=== PATIENT | female | born 2005 | race Caucasian/White ===

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

== ENCOUNTER 2023-01-08 19:01 | Emergency (ER) | payer MEDICAID, SELFPAY ==
[2023-01-08 19:05] VITALS: BP 118/73; PULSE 87; RESP 18; TEMP 36.7; O2SAT 95; BMI 16.6
--- NOTE | 2023-01-08 19:13 | W.ED.PREGNAN ---
HPI - General: Chief complaint: OB/Uterine Contractions Stated complaint: abd pain/bleeding Time Seen by Provider: 01/08/23 19:11 History of Present Illness: 17-year-old female has had spotting for which she reports the last 2 weeks. Patient had a positive test today. Patient appears nontoxic. Patient appears in no acute distress. Patient reports mild cramping. Patient reports irregular bleeding but not saturation of pad and no loss of tissue. Related Data: : 3 Para: 2 Total number of abortions (spontaneous and elective): 0 Review of Systems General: Reports: 10 or more systems reviewed and unremarkable except in HPI and below : Reports: vaginal bleeding and other (Positive test) PFS ED PFSH: Medical History No pertinent family history Surgical History No pertinent past surgical history Social History Smoking and tobacco status: current every day smoker e-cigarettes E-Cigarette Details: vaporizer device Second hand smoke exposure: Yes Alcohol intake: never Desire information about alcohol rehabilitation?: No Substance/Drug Use: never Desire information about substance/drug rehabilitation?: No Female Reproductive History: : 3 Physical Exam Const: COMMON NORMALS: alert HENMT: COMMON NORMALS: normocephalic HEAD & SCALP: normocephalic Neck/C-Spine: COMMON NORMALS: full ROM Resp: COMMON NORMALS: normal respiratory effort and clear to auscultation bilaterally AUSCULTATION: clear to auscultation bilaterally Cardio: COMMON NORMALS: regular rate and regular rhythm RATE: regular rate RHYTHM: regular rhythm : COMMON NORMALS: Yes no CVA tenderness BLADDER/KIDNEY EXAM: Yes no CVA tenderness Back/Pelvis: COMMON NORMALS: no CVA tenderness Extremity: COMMON NORMALS: normal to inspection Neuro: SENSORIUM/ORIENTATION: Yes alert Skin: COMMON NORMALS: turgor normal GENERAL SKIN EXAM: turgor normal Course Vital Signs: Vital signs: Vital Signs Temperature 98.0 F 01/08/23 19:05 Pulse Rate 87 01/08/23 19:05 Respiratory Rate 18 01/08/23 19:05 Blood Pressure 118/73 01/08/23 19:05 Pulse Oximetry 95 01/08/23 19:05 Oxygen Delivery Me thod Room Air 01/08/23 19:05 MDM - OB/Uterine Contractions Medical Decision Making 17-year-old female comes in today with complaints of irregular bleeding for the last 2 weeks. Patient had a positive test today and came in to be evaluated. Patient appears nontoxic. Patient appears in no acute distress. Patient reports no no heavy bleeding. Vital signs are normal. Differential diagnosis includes not limited to threatened , implantation bleeding, ectopic , UTI. CBC was unremarkable. CMP was normal. Urinalysis had some red blood cells and skin cells. hCG was 600. Did not recommend ultrasound at this time, recommend repeat hCG level drawn in 3 days and ultrasound at that time if greater than 1500. Patient reports understanding of care plan and need for follow-up or return to the ER. Lab Data 01/08/23 20:17 01/08/23 20:17 Laboratory Results WBC 7.3 10^3/uL (4.5-13.0) 01/08/23 20:17 RBC 4.05 10^6/uL (4.1-5.3) L 01/08/23 20:17 Hgb 11.5 g/dL (11.5-15.3) 01/08/23 20:17 Hct 34.6 % (37.0-47.0) L 01/08/23 20:17 MCV 85.4 fl (81-99) 01/08/23 20:17 MCH 28.4 pg (28.0-34.0) 01/08/23 20:17 MCHC 33.2 g/dL (30.0-36.0) 01/08/23 20:17 RDW 13.7 % (12.1-15.1) 01/08/23 20:17 Plt Count 284 10^3/cmm (130-400) 01/08/23 20:17 MPV 9.4 fL (7.4-10.4) 01/08/23 20:17 Neut % (Auto) 46.1 % 01/08/23 20:17 Lymph % (Auto) 44.6 % 01/08/23 20:17 Nelson % (Auto) 7.7 % 01/08/23 20:17 Eos % (Auto) 1.2 % 01/08/23 20:17 Baso % (Auto) 0.3 % 01/08/23 20:17 Neut # (Auto) 3.36 10^3/uL (1.8-8.0) 01/08/23 20:17 Lymph # (Auto) 3.3 10^3/uL (1.5-6.5) 01/08/23 20:17 Nelson # (Auto) 0.6 10^3/uL (0.2-0.9) 01/08/23 20:17 Eos # (Auto) 0.1 10^3/uL (0.0-0.8) 01/08/23 20:17 Baso # (Auto) 0.0 10^3/uL (0.0-0.1) 01/08/23 20:17 Nucleated RBC % (auto) 0 % 01/08/23 20:17 Nucleated RBCs # 0.0 /100WBC 01/08/23 20:17 Sodium 138 mmol/L (136-145) 01/08/23 20:17 Potassium 3.5 mmol/L (3.5-5.1) 01/08/23 20:17 Chloride 103 mmol/L (98-107) 01/08/23 20:17 Carbon Dioxide 26 mmol/L (22-29) 01/08/23 20:17 Anion Gap 12.5 (5-19) 01/08/23 20:17 BUN 9 mg/dL (6-20) 01/08/23 20:17 Creatinine 0.5 mg/dL (0.5-0.9) 01/08/23 20:17 GFR Calculation 158.9 mL/min (90-130) H 01/08/23 20:17 Glucose 74 mg/dL (65-115) 01/08/23 20:17 Calculated Osmolality 283 mOsm/kg (285-295) L 01/08/23 20:17 Calcium 9.9 mg/dL (8.5-10.5) 01/08/23 20:17 Total Bilirubin 0.4 mg/dL (0.15-1.2) 01/08/23 20:17 AST 16 U/L (0-32) 01/08/23 20:17 ALT 10 U/L (0-33) 01/08/23 20:17 Alkaline Phosphatase 63 U/L (35-105) 01/08/23 20:17 Total Protein 7.1 g/dL (6.6-8.7) 01/08/23 20:17 Albumin 4.5 g/dL (3.5-5.2) 01/08/23 20:17 Globulin 2.6 g/dL (1.3-4.6) 01/08/23 20:17 Ser , Semi-Qnt 684.40 mIU/mL 01/08/23 20:17 Urine Color Yellow (Yellow) 01/08/23 19:27 Urine Appearance Hazy (CLEAR) A 01/08/23 19:27 Urine pH 6 (5-7) 01/08/23 19: Ur Specific [place] 1.020 (1.005-1.030) 01/08/23 19: Urine Protein Neg (Negative) 01/08/23 19: Urine Glucose (UA) Norm (Normal) 01/08/23 19:27 Urine Ketones Negative (Negative) 01/08/23 19:27 Urine Blood 3+ (Negative) H 01/08/23 19:27 Urine Nitrate Negative (Negative) 01/08/23 19: Urine Bilirubin Neg (Negative) 01/08/23 19:27 Urine Urobilinogen 1 mg/dL (Negative) H 01/08/23 19:27 Ur Leukocyte Esterase Negative (Negative) 01/08/23 19:27 Urine RBC 0-4 /hpf (0-2) H 01/08/23 19:27 Urine WBC 0-4 /hpf (0-5) H 01/08/23 19:27 Ur Squamous Epith Cells 10-15 /hpf (0-5) H 01/08/23 19:27 Amorphous Sediment Not Reportable 01/08/23 19:27 Urine Bacteria Trace /hpf (NONE) 01/08/23 19:27 Urine Mucus 4+ /hpf 01/08/23 19:27 Blood Type O Positive 01/08/23 20:17 Rho(D) Type Positive 01/08/23 20:17 Antibody Screen Negative 01/08/23 20:17 Discharge Plan Discharge Patient Disposition: Home Clinical Impression: Threatened in early Condition: Stable Prescriptions: No Action trazodone 50 mg Tablet 50 mg PO BEDTIME PRN (Reason: Sleep) 30 Days Qty: 30 1RF sertraline 50 mg Tablet 50 mg PO DAILY 30 Days Qty: 30 1RF hydrocodone-acetaminophen 5-325 mg tablet 1 tab PO Q4H PRN (Reason: pain (scale score 7-10)) Qty: 10 0RF prenat.vits,jenniffer,jmi-yqso-pjxed Tablet 1 tab PO DAILY amoxicillin-pot clavulanate 875-125 mg tablet 1 tab PO BID Qty: 10 0RF naproxen 500 mg tablet 500 mg PO BID Qty: 20 0RF hydrocodone-acetaminophen 5-325 mg tablet 1 tab PO Q6H PRN (Reason: pain) Qty: 8 0RF Discharge Orders: Discharge ED (Routine); Ordered 01/08/23 Ordered By: Vincent Devlin Discharge Diet: Usual diet Discharge Activity: Limit activity as instructed Patient Instructions: Threatened Miscarriage (ED) Activity Restrictions/Additional Instructions: Drink plenty of water and fluids. No heavy straining or lifting. Pelvic rest until bleeding stops. Follow-up with primary care or GUIDANCE AND CONTROL SYSTEM ENGINEER in 3 days for recheck of hCG level. You are either in really early or having a miscarriage. Things need to monitor for as high fever greater than 100.4, vaginal bleeding greater than saturating 1 pad an hour, severe chest pain, shortness of breath, and feeling of passing out. If you have any of the symptoms you need to return to the ER. Otherwise follow-up with your appointment in 3 days for recheck of blood work. Coding Level of Care Code ED Assistant In Nursing for Carlos Zepeda
[2023-01-08 20:25] LABS: Bilirubin Urine Neg (Negative); Blood Urine 3+ (Negative); Glucose Urine UA Norm (Normal); Ketones Urine Negative (Negative); Nitrate Urine Negative (Negative); Protein Urine Neg (Negative); Urine Appearance Hazy (CLEAR); Urine Color Yellow (Yellow); Urobilinogen Urine 1 mg/dL (Negative); pH Urine 6 (5-7)
[2023-01-08 20:26] LABS: Add Urine Microscopic? YES; Leukocyte Esterase Urine Negative (Negative); RBC Urine 0-4 /hpf (0-2); WBC Urine 0-4 /hpf (0-5)
[2023-01-08 20:27] LABS: Bacteria Urine TRACE /hpf; Mucus Urine 4+ /hpf
[2023-01-08 20:28] LABS: Add Urine Culture? No
[2023-01-08 20:30] LABS: Basophils % 0.3 %; Eosinophils # 0.1 10^3/uL (0.0-0.8); Eosinophils % 1.2 %; Hematocrit 34.6 % (37.0-47.0); Hemoglobin 11.5 g/dL (11.5-15.3); Lymphocytes # 3.3 10^3/uL (1.5-6.5); Lymphocytes % 44.6 %; Mean Corpuscular HGB Conc 33.2 g/dL (30.0-36.0); Mean Corpuscular Hemoglobin 28.4 pg (28.0-34.0); Mean Corpuscular Volume 85.4 fl (81-99); Mean Platelet Volume 9.4 fL (7.4-10.4); Monocytes # 0.6 10^3/uL (0.2-0.9); Monocytes % 7.7 %; Neutrophils # 3.36 10^3/uL (1.8-8.0); Neutrophils % 46.1 %; Nucleated Red Blood Cells % 0 %; Platelet Count 284 10^3/cmm (130-400); Red Blood Count 4.05 10^6/uL (4.1-5.3); Red Cell Distribution Width 13.7 % (12.1-15.1); White Blood Count 7.3 10^3/uL (4.5-13.0)
[2023-01-08 20:56] LABS: Alanine Aminotransferase 10 U/L (0-33); Albumin Level 4.5 g/dL (3.5-5.2); Alkaline Phosphatase 63 U/L (35-105); Anion Gap 12.5 (5-19); Aspartate Amino Transferase 16 U/L (0-32); Blood Urea Nitrogen 9 mg/dL (6-20); Calcium 9.9 mg/dL (8.5-10.5); Carbon Dioxide 26 mmol/L (22-29); Chloride 103 mmol/L (98-107); Globulin 2.6 g/dL (1.3-4.6); Glomerular Filtration Rate 158.9 mL/min (90-130); Glucose 74 mg/dL (65-115); Osmolality Calculated 283 mOsm/kg (285-295); Potassium 3.5 mmol/L (3.5-5.1); Sodium 138 mmol/L (136-145); Total Bilirubin 0.4 mg/dL (0.15-1.2); Total Protein 7.1 g/dL (6.6-8.7)
[2023-01-08 21:10] VITALS: BP 118/73; PULSE 87; RESP 18; TEMP 36.7; O2SAT 95
--- NOTE | 2023-01-09 07:40 | DCPLANNER ---
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 social media project manager sent patients information to the front office staff of [facility]. Patients information will be printed and reviewed. Clinic will call patient with appointment information.
--- NOTE | 2023-01-09 09:50 | DCPLANNER ---
floodplain manager called patient due to no primary care physician - patient stated that she will schedule an appointment with a primary care physician.
== END 2023-01-08 21:13 | disposition home or self-care (01) ==
PROVIDERS: Emergency Provider Nurse Practitioner Family
DX: O20.0 Threatened abortion (principal); Z3A.00 Weeks of gestation of pregnancy not specified; O99.330 Smoking (tobacco) complicating pregnancy, unspecified trimester; F17.210 Nicotine dependence, cigarettes, uncomplicated
CPT/HCPCS: 36415; 80053; 81001; 84702; 85025; 86850; 86900; 99283

== ENCOUNTER 2023-01-11 08:03 | Emergency (ER) | payer MEDICAID, SELFPAY ==
[2023-01-11 08:48] VITALS: BP 124/52; PULSE 90; RESP 18; TEMP 36.9; O2SAT 98
[2023-01-11 09:40] LABS: Basophils % 0.3 %; Eosinophils # 0.1 10^3/uL (0.0-0.8); Eosinophils % 0.8 %; Hematocrit 36.1 % (37.0-47.0); Hemoglobin 11.6 g/dL (11.5-15.3); Lymphocytes % 33.1 %; Mean Corpuscular HGB Conc 32.1 g/dL (30.0-36.0); Mean Corpuscular Hemoglobin 28.2 pg (28.0-34.0); Mean Corpuscular Volume 87.6 fl (81-99); Mean Platelet Volume 9.6 fL (7.4-10.4); Monocytes # 0.5 10^3/uL (0.2-0.9); Monocytes % 7.6 %; Neutrophils # 3.41 10^3/uL (1.8-8.0); Neutrophils % 57.9 %; Nucleated Red Blood Cells % 0 %; Platelet Count 315 10^3/cmm (130-400); Red Blood Count 4.12 10^6/uL (4.1-5.3); Red Cell Distribution Width 13.8 % (12.1-15.1); White Blood Count 5.9 10^3/uL (4.5-13.0)
--- NOTE | 2023-01-11 09:41 | W.ED.PREGNAN ---
HPI - General: Chief complaint: Vaginal Bleeding Stated complaint: cramps and bleeding possible preg Time Seen by Provider: 01/11/23 09:17 Source: patient Mode of arrival: ambulatory History of Present Illness: 17-year-old female presents with rectal bleeding she was seen a couple days ago had a serum quantitative beta-hCG of a little over 600 she continues to have bleeding although it is decreased. She was advised to return to the emergency room for evaluation reevaluate versus take symptoms she has mild pelvic cramping. She states bleeding is now less than what her normal period is. Denies dysuria urgency or frequency. MD Complaint: vaginal bleeding Onset (ago): day(s) Pain Consistency: intermittent Location: pelvis Severity: mild Quality: Cramping Relieving factors: none Exacerbating factors: none Vaginal bleeding: other (Intermittent generally decreasing) Associated symptoms: Deny abdominal pain, dysuria, malaise, nausea or vomiting Review of Systems Const: Denies: fever(s), chills, fatigue or malaise Card: Denies: chest pain, edema, dyspnea on exertion or orthopnea Resp: Denies: dyspnea, productive cough or non-productive cough GI: Denies: abdominal pain, nausea, vomiting, hematemesis, coffee ground emesis, diarrhea, constipation, bloating, hematochezia or melena : Denies: flank pain, difficulty voiding, dysuria, urinary frequency or urinary urgency Skin/Breast: Denies: rash or pruritus [facility] ED PFSH: Medical History No pertinent family history Surgical History No pertinent past surgical history Social History Smoking and tobacco status: current every day smoker e-cigarettes E-Cigarette Details: vaporizer device Second hand smoke exposure: Yes Alcohol intake: never Desire information about alcohol rehabilitation?: No Substance/Drug Use: never Desire information about substance/drug rehabilitation?: No Physical Exam Const: GENERAL APPEARANCE: cooperative and comfortable ORIENTATION/CONSCIOUSNESS: Yes awake, Yes oriented to person, Yes oriented to place and Yes oriented to time HENMT: COMMON NORMALS: normocephalic, atraumatic and hearing grossly normal bilaterally HEAD & SCALP: normocephalic and atraumatic Resp: COMMON NORMALS: normal respiratory effort, No retractions, No use of accessory muscles and clear to auscultation bilaterally AUSCULTATION: clear to auscultation bilaterally Cardio: COMMON NORMALS: regular rate, regular rhythm and No murmurs present (Cardio) RATE: regular rate RHYTHM: regular rhythm GI: COMMON NORMALS: Soft to palpation and No hepatosplenomegaly present AUSCULTATION: Yes normoactive bowel sounds PALPATION: Yes Soft to palpation, No Tenderness to palpation present (GI), No Guarding due to palpation present (GI) and Yes No hepatosplenomegaly present Extremity: COMMON NORMALS: normal to inspection, capillary refill normal, no clubbing, cyanosis or edema, no calf tenderness and no pedal edema Neuro: SENSORIUM/ORIENTATION: Yes oriented to person, Yes oriented to place and Yes oriented to time Skin: COMMON NORMALS: no rashes or lesions noted GENERAL SKIN EXAM: no rashes or lesions noted Course Vital Signs: Vital signs: Vital Signs Temperature 98.5 F 01/11/23 08:48 Pulse Rate 83 01/11/23 10:53 Respiratory Rate 18 01/11/23 10:53 Blood Pressure 124/52 01/11/23 08:48 Pulse Oximetry 100 01/11/23 10:53 Oxygen Delivery Me thod Room Air 01/11/23 08:48 MDM - OB/Uterine Contractions Medical Decision Making Incomplete AB. Discussed with patient beta-hCG is dropping. She will likely continue to have intermittent bleeding and cramping. Follow-up in the next 5 to 7 days with [facility] for repeat beta-hCG return if has fever worsening bleeding or uncontrolled pain Medical Records I reviewed the patient's medical records. Lab Data I reviewed the patient's lab results. 01/11/23 09:32 01/11/23 09:32 Laboratory Results WBC 5.9 10^3/uL (4.5-13.0) 01/11/23 09:32 RBC 4.12 10^6/uL (4.1-5.3) 01/11/23 09:32 Hgb 11.6 g/dL (11.5-15.3) 01/11/23 09:32 Hct 36.1 % (37.0-47.0) L 01/11/23 09:32 MCV 87.6 fl (81-99) 01/11/23 09:32 MCH 28.2 pg (28.0-34.0) 01/11/23 09:32 MCHC 32.1 g/dL (30.0-36.0) 01/11/23 09:32 RDW 13.8 % (12.1-15.1) 01/11/23 09:32 Plt Count 315 10^3/cmm (130-400) 01/11/23 09:32 MPV 9.6 fL (7.4-10.4) 01/11/23 09:32 Neut % (Auto) 57.9 % 01/11/23 09:32 Lymph % (Auto) 33.1 % 01/11/23 09:32 [place] % (Auto) 7.6 % 01/11/23 09:32 Eos % (Auto) 0.8 % 01/11/23 09:32 Baso % (Auto) 0.3 % 01/11/23 09:32 Neut # (Auto) 3.41 10^3/uL (1.8-8.0) 01/11/23 09:32 Lymph # (Auto) 2.0 10^3/uL (1.5-6.5) 01/11/23 09:32 [place] # (Auto) 0.5 10^3/uL (0.2-0.9) 01/11/23 09:32 Eos # (Auto) 0.1 10^3/uL (0.0-0.8) 01/11/23 09:32 Baso # (Auto) 0.0 10^3/uL (0.0-0.1) 01/11/23 09:32 Nucleated RBC % (auto) 0 % 01/11/23 09:32 Nucleated RBCs # 0.0 /100WBC 01/11/23 09:32 Sodium 137 mmol/L (136-145) 01/11/23 09:32 Potassium 3.6 mmol/L (3.5-5.1) 01/11/23 09:32 Chloride 104 mmol/L (98-107) 01/11/23 09:32 Carbon Dioxide 20 mmol/L (22-29) L 01/11/23 09:32 Anion Gap 16.6 (5-19) 01/11/23 09:32 BUN 9 mg/dL (6-20) 01/11/23 09:32 Creatinine 0.5 mg/dL (0.5-0.9) 01/11/23 09:32 GFR Calculation 158.9 mL/min (90-130) H 01/11/23 09:32 Glucose 83 mg/dL (65-115) 01/11/23 09:32 Calculated Osmolality 282 mOsm/kg (285-295) L 01/11/23 09:32 Calcium 9.1 mg/dL (8.5-10.5) 01/11/23 09:32 Total Bilirubin 0.4 mg/dL (0.15-1.2) 01/11/23 09:32 AST 15 U/L (0-32) 01/11/23 09:32 ALT 8 U/L (0-33) 01/11/23 09:32 Alkaline Phosphatase 57 U/L (35-105) 01/11/23 09:32 Total Protein 6.9 g/dL (6.6-8.7) 01/11/23 09:32 Albumin 4.6 g/dL (3.5-5.2) 01/11/23 09:32 Globulin 2.3 g/dL (1.3-4.6) 01/11/23 09:32 Ser , Semi-Qnt 518.60 mIU/mL 01/11/23 09:32 Discharge Plan Discharge Patient Disposition: Home Clinical Impression: Incomplete miscarriage Condition: Stable Prescriptions: No Action No Known Home Medications Discharge Orders: Discharge ED (Routine); Ordered 01/11/23 Ordered By: Maurisio Razo Discharge Diet: Usual diet Discharge Activity: Resume usual activity Patient Instructions: Miscarriage (ED), Opioid Safety, Pain Management Activity Restrictions/Additional Instructions: Follow-up with your primary care provider for repeat blood testing on the hormone in approximately 1 week. You will likely continue to have vaginal bleeding but should continue to taper off over the next 7 to 10 days. If symptoms worsen or change return to the emergency room. Coding Level of Care Code ED Curriculum Development Coordinator for Carlos Zepeda
[2023-01-11] MEDS: sodium chloride 0.9% 1,000 ML 999 ML IV (09:43)
[2023-01-11 10:10] LABS: Alanine Aminotransferase 8 U/L (0-33); Albumin Level 4.6 g/dL (3.5-5.2); Alkaline Phosphatase 57 U/L (35-105); Anion Gap 16.6 (5-19); Aspartate Amino Transferase 15 U/L (0-32); Blood Urea Nitrogen 9 mg/dL (6-20); Calcium 9.1 mg/dL (8.5-10.5); Carbon Dioxide 20 mmol/L (22-29); Chloride 104 mmol/L (98-107); Globulin 2.3 g/dL (1.3-4.6); Glomerular Filtration Rate 158.9 mL/min (90-130); Glucose 83 mg/dL (65-115); Osmolality Calculated 282 mOsm/kg (285-295); Potassium 3.6 mmol/L (3.5-5.1); Sodium 137 mmol/L (136-145); Total Bilirubin 0.4 mg/dL (0.15-1.2); Total Protein 6.9 g/dL (6.6-8.7)
[2023-01-11 10:53] VITALS: PULSE 83; RESP 18; O2SAT 100
== END 2023-01-11 10:54 | disposition home or self-care (01) ==
PROVIDERS: Emergency Provider Family Medicine
DX: O03.4 Incomplete spontaneous abortion without complication (principal); F17.290 Nicotine dependence, other tobacco product, uncomplicated
CPT/HCPCS: 36415; 80053; 84702; 85025; 99284; J7030

== ENCOUNTER 2023-01-11 16:12 | Emergency (ER) | payer MEDICAID, SELFPAY ==
[2023-01-11 16:16] VITALS: BP 123/59; PULSE 105; RESP 16; TEMP 36.9; O2SAT 97; BMI 17.2
--- NOTE | 2023-01-11 16:35 | W.ED.PREGNAN ---
HPI - General: Chief complaint: Abdominal Pain Stated complaint: sent for abn labs Time Seen by Provider: 01/11/23 16:14 Source: patient Mode of arrival: ambulatory History of Present Illness: 17-year-old female G3 now P2 female who was seen yesterday and had a beta-hCG and mid 600s urine at that time her blood from vaginal source but was otherwise unremarkable white count is normal and hemoglobin is stable. . Patient was seen back today for repeat beta-hCG had decreased to 518. Patient had noted initially some increased cramping and bleeding and then it began to slow down a bit. We reviewed the results with her and discharged her home advised her that she was having a miscarriage and would likely continue to have some bleeding and cramping. After this visit she had been scheduled to be seen at OB and the OB doctor called her after reviewing the beta-hCG and informed her that she was having a miscarriage they gave her precautionary warnings to return. I did discuss with Dr. Gao who had called and talked to the patient. After talking to Dr. Gao misunderstood what Dr. Gao had conveyed and called back to the emergency room angry that we had not treated her for an infection. We are unaware who had called her after some checking into it found that it was Dr. Gao's office. I called Dr. Gao and reviewed the case with him he stated he had worn them for signs of infection but did not tell them that she had an infection. Shortly after all this had transpired the patient and her return to the emergency room. Patient is reporting increasing bleeding. Patient had told registration in triage nurse initially in they are returning for abnormal labs. MD Complaint: abdominal pain and vaginal bleeding Onset (ago): day(s) Pain Consistency: intermittent Location: pelvis Quality: Cramping Relieving factors: none Exacerbating factors: none Vaginal bleeding: heavy Associated symptoms: Reports abdominal pain; Deny dysuria, malaise, nausea or vomiting Review of Systems Const: Denies: fever(s), chills, fatigue or malaise Resp: Denies: dyspnea GI: Reports: abdominal pain; Denies: nausea or vomiting : Denies: flank pain, dysuria, urinary frequency or urinary urgency Skin/Breast: Denies: rash or pruritus PFS ED PFSH: Medical History No pertinent family history Surgical History No pertinent past surgical history Social History Smoking and tobacco status: current every day smoker e-cigarettes E-Cigarette Details: vaporizer device Second hand smoke exposure: Yes Alcohol intake: never Desire information about alcohol rehabilitation?: No Substance/Drug Use: never Desire information about substance/drug rehabilitation?: No Physical Exam Const: GENERAL APPEARANCE: cooperative ORIENTATION/CONSCIOUSNESS: Yes awake, Yes oriented to person, Yes oriented to place and Yes oriented to time HENMT: COMMON NORMALS: normocephalic, atraumatic and hearing grossly normal bilaterally HEAD & SCALP: normocephalic and atraumatic Resp: COMMON NORMALS: normal respiratory effort, No retractions, No use of accessory muscles and clear to auscultation bilaterally AUSCULTATION: clear to auscultation bilaterally Cardio: COMMON NORMALS: regular rate, regular rhythm and No murmurs present (Cardio) RATE: regular rate RHYTHM: regular rhythm GI: COMMON NORMALS: Soft to palpation and No hepatosplenomegaly present AUSCULTATION: Yes normoactive bowel sounds PALPATION: Yes Soft to palpation, No Tenderness to palpation present (GI), No Guarding due to palpation present (GI) and Yes No hepatosplenomegaly present Back/Pelvis: OTHER: Pelvic exam with nurse present there is no cervical dilation mucousy bleeding in the cervix but no active bleeding from the cervix no POC in the os no purulent drainage. No cervical motion tenderness. Extremity: COMMON NORMALS: normal to inspection, capillary refill normal, no clubbing, cyanosis or edema, no calf tenderness and no pedal edema Neuro: SENSORIUM/ORIENTATION: Yes oriented to person, Yes oriented to place and Yes oriented to time Skin: COMMON NORMALS: no rashes or lesions noted GENERAL SKIN EXAM: no rashes or lesions noted Course Vital Signs: Vital signs: Vital Signs Temperature 98.4 F 01/11/23 16:16 Pulse Rate 105 H 01/11/23 16:16 Respiratory Rate 16 01/11/23 16:16 Blood Pressure 123/59 01/11/23 16:16 Pulse Oximetry 97 01/11/23 16:16 Oxygen Delivery Me thod Room Air 01/11/23 16:16 MDM - OB/Uterine Contractions Medical Decision Making Patient had good relief with Toradol. Reviewed previous visit and findings. Discussed what to expect she has no fever white count at this point no signs of infection. No dysuria urgency or frequency previous UA negative. Hemoglobin did decrease slightly from earlier today but is still stable. Discussed with patient the importance of rechecking a beta-hCG in the next 5 to 7 days. They have already made arrangements for follow-up with Dr. Gao's office. Medical Records I reviewed the patient's medical records. Lab Data I reviewed the patient's lab results. 01/11/23 16:45 Laboratory Results WBC 6.6 10^3/uL (4.5-13.0) 01/11/23 16:45 RBC 3.94 10^6/uL (4.1-5.3) L 01/11/23 16:45 Hgb 11.2 g/dL (11.5-15.3) L 01/11/23 16:45 Hct 34.2 % (37.0-47.0) L 01/11/23 16:45 MCV 86.8 fl (81-99) 01/11/23 16:45 MCH 28.4 pg (28.0-34.0) 01/11/23 16:45 MCHC 32.7 g/dL (30.0-36.0) 01/11/23 16:45 RDW 13.6 % (12.1-15.1) 01/11/23 16:45 Plt Count 266 10^3/cmm (130-400) 01/11/23 16:45 MPV 9.4 fL (7.4-10.4) 01/11/23 16:45 Neut % (Auto) 50.4 % 01/11/23 16:45 Lymph % (Auto) 39.6 % 01/11/23 16:45 [place] % (Auto) 8.0 % 01/11/23 16:45 Eos % (Auto) 1.5 % 01/11/23 16:45 Baso % (Auto) 0.3 % 01/11/23 16:45 Neut # (Auto) 3.32 10^3/uL (1.8-8.0) 01/11/23 16:45 Lymph # (Auto) 2.6 10^3/uL (1.5-6.5) 01/11/23 16:45 [place] # (Auto) 0.5 10^3/uL (0.2-0.9) 01/11/23 16:45 Eos # (Auto) 0.1 10^3/uL (0.0-0.8) 01/11/23 16:45 Baso # (Auto) 0.0 10^3/uL (0.0-0.1) 01/11/23 16:45 Nucleated RBC % (auto) 0 % 01/11/23 16:45 Nucleated RBCs # 0.0 /100WBC 01/11/23 16:45 Discharge Plan Discharge Patient Disposition: Home Clinical Impression: Incomplete miscarriage Condition: Stable Prescriptions: New diclofenac sodium 75 mg tablet,delayed release (DR/EC) 75 mg PO Q12H PRN (Reason: pain) Qty: 20 0RF Discharge Orders: Discharge ED (Routine); Ordered 01/11/23 Ordered By: Maurisio Razo Discharge Diet: Usual diet Patient Instructions: Opioid Safety, Pain Management Activity Restrictions/Additional Instructions: You were seen today for an incomplete miscarriage. On pelvic exam there is slight bleeding from the cervical os but no active bleeding. Expect that you will continue to have intermittent periods of cramping and heavy bleeding. You can use diclofenac as needed to relieve the cramping. It is important to follow-up with Dr. Gao next week for repeat beta-hCG. Coding Level of Care Code ED Manager Utilization Management for Carlos Zepeda
[2023-01-11 16:51] LABS: Basophils % 0.3 %; Eosinophils # 0.1 10^3/uL (0.0-0.8); Eosinophils % 1.5 %; Hematocrit 34.2 % (37.0-47.0); Hemoglobin 11.2 g/dL (11.5-15.3); Lymphocytes # 2.6 10^3/uL (1.5-6.5); Lymphocytes % 39.6 %; Mean Corpuscular HGB Conc 32.7 g/dL (30.0-36.0); Mean Corpuscular Hemoglobin 28.4 pg (28.0-34.0); Mean Corpuscular Volume 86.8 fl (81-99); Mean Platelet Volume 9.4 fL (7.4-10.4); Monocytes # 0.5 10^3/uL (0.2-0.9); Neutrophils # 3.32 10^3/uL (1.8-8.0); Neutrophils % 50.4 %; Nucleated Red Blood Cells % 0 %; Platelet Count 266 10^3/cmm (130-400); Red Blood Count 3.94 10^6/uL (4.1-5.3); Red Cell Distribution Width 13.6 % (12.1-15.1); White Blood Count 6.6 10^3/uL (4.5-13.0)
[2023-01-11] MEDS: ketorolac 30 mg/mL INJ 60 MG IM (17:02)
== END 2023-01-11 17:32 | disposition home or self-care (01) ==
PROVIDERS: Emergency Provider Family Medicine
DX: O03.4 Incomplete spontaneous abortion without complication (principal); O99.330 Smoking (tobacco) complicating pregnancy, unspecified trimester; Z3A.00 Weeks of gestation of pregnancy not specified; F17.290 Nicotine dependence, other tobacco product, uncomplicated
CPT/HCPCS: 36415; 85025; 96372; 99284; J1885

== ENCOUNTER 2023-08-29 10:12 | Outpatient (CLI) | payer MEDICAID, SELFPAY ==
[2023-08-29 10:27] VITALS: BMI 20.7
[2023-08-29 10:50] VITALS: BP 130/53; PULSE 94
== END 2023-08-29 11:05 | disposition home or self-care (01) ==
LOC: OPOB 10:19 → OBGYN 10:21
PROVIDERS: Visit Provider Family Medicine
DX: O36.8190 Decreased fetal movements, unspecified trimester, not applicable or unspecified (principal); Z3A.00 Weeks of gestation of pregnancy not specified
CPT/HCPCS: 59025; 99211

== ENCOUNTER 2023-09-05 08:18 | Outpatient (CLI) | payer MEDICAID, SELFPAY ==
[2023-09-05 08:15] VITALS: BMI 20.5
[2023-09-05 08:29] VITALS: BP 109/61; PULSE 98; RESP 16; TEMP 36.7; O2SAT 98
== END 2023-09-05 09:02 | disposition home or self-care (01) ==
LOC: OPOB 08:18 → OBGYN 08:19
PROVIDERS: Visit Provider Family Medicine
DX: O26.899 Other specified pregnancy related conditions, unspecified trimester (principal); Z3A.00 Weeks of gestation of pregnancy not specified; M54.9 Dorsalgia, unspecified; M25.559 Pain in unspecified hip; G47.9 Sleep disorder, unspecified
CPT/HCPCS: 59025; 99211

== ENCOUNTER 2023-10-07 10:06 | Outpatient (CLI) | payer MEDICAID, SELFPAY ==
[2023-10-07 10:08] VITALS: BMI 21.9
[2023-10-07 10:17] VITALS: BP 152/68; PULSE 117
[2023-10-07 10:33] VITALS: BP 135/75; PULSE 107
[2023-10-07 10:47] VITALS: BP 127/68; PULSE 114
[2023-10-07 10:49] LABS: Add Urine Culture? No; Amorphous Sediment Urine 1+ /hpf; Bacteria Urine 2+ /hpf; Bilirubin Urine Neg (Negative); Blood Urine Neg (Negative); Glucose Urine UA Norm (Normal); Ketones Urine Negative (Negative); Leukocyte Esterase Urine 1+ (Negative); Nitrate Urine Negative (Negative); Protein Urine Neg (Negative); Squamous Epithelial Cell Urine 25-40 /hpf (0-5); Sulfosalicylic Acid Urine Negative (Negative); Urine Appearance Hazy (CLEAR); Urine Color Yellow (Yellow); Urobilinogen Urine Neg (Negative); WBC Urine 15-25 /hpf (0-5); pH Urine 8 (5-7)
[2023-10-07 11:07] VITALS: BP 127/68; PULSE 114
== END 2023-10-07 11:08 | disposition home or self-care (01) ==
LOC: OPOB 10:07 → OBGYN 10:07
PROVIDERS: Visit Provider Family Medicine
DX: O26.899 Other specified pregnancy related conditions, unspecified trimester (principal); Z3A.00 Weeks of gestation of pregnancy not specified; M54.9 Dorsalgia, unspecified; R10.2 Pelvic and perineal pain
CPT/HCPCS: 59025; 81001; 99211

== ENCOUNTER 2023-10-10 07:40 | Outpatient (CLI) | payer MEDICAID, SELFPAY ==
[2023-10-10] VITALS (8 sets, daily range): BP systolic 83–117; BP diastolic 50–66; PULSE 86–97; RESP 17–20; TEMP 36.9; BMI 21.6
[2023-10-10] MEDS: acetaminophen 500 mg Tablet 1000 MG PO (08:29)
[2023-10-10 08:40] LABS: Urine Color Light yellow (Yellow)
[2023-10-10 08:41] LABS: Bilirubin Urine Neg (Negative); Blood Urine Neg (Negative); Glucose Urine UA Norm (Normal); Ketones Urine Negative (Negative); Leukocyte Esterase Urine 1+ (Negative); Nitrate Urine Negative (Negative); Protein Urine Neg (Negative); Urine Appearance Clear (CLEAR); Urobilinogen Urine Norm (Negative); pH Urine 8 (5-7)
[2023-10-10 08:43] LABS: Add Urine Culture? No; Bacteria Urine TRACE /hpf; RBC Urine RARE /hpf (0-2); Squamous Epithelial Cell Urine 0-4 /hpf (0-5); Transitional Epi Cells Urine 0-4 /hpf; WBC Urine 0-4 /hpf (0-5)
--- NOTE | 2023-10-10 09:13 | US_ITS ---
WS: [id number] ULTRASOUND OB FOCUSED HISTORY: PLACENTAL AND EVALUATION. RAMSEY. COMPARISON: 07/08/2023 Single intrauterine gestation is identified in vertex presentation. The cervix is not well visualized due to the late gestational age. Placenta is fundal and grade 2. No abruption or previa. heart rate at 135 BPM. Amniotic fluid index: 17.9 cm. US/US OB limited [id number] IMPRESSION: Normal amniotic fluid index. Normal grade 2 placenta.
--- NOTE | 2023-10-10 09:15 | US_ITS ---
WS: [id number] RENAL ULTRASOUND HISTORY: SEVERE BACK PAIN, gravid uterus. COMPARISON: None available. TECHNIQUE: 2-D and color Doppler imaging of the kidney submitted. Right kidney: 10.0 cm x 4.5 cm x 5.1 cm. Cortex: 1.7 cm Normal size kidney. There is mild hydronephrosis. Very minimal thickening and dilatation of the calyc es. Left kidney: 9.2 cm x 5.1 cm x 4.8 cm. Cortex: 1.3 cm Normal echogenicity with no hydronephrosis or mass. Aorta: Normal. Urinary Bladder: Nondistended. US/US renal BI* [id number] IMPRESSION: Mild RIGHT hydronephrosis.
[2023-10-10] MEDS: morphine 4 mg/mL SDV 1 mL 2 MG IVP (09:37)
[2023-10-10] MEDS: ondansetron 2 mg/ML SDV 2 mL 4 MG IVP (09:37)
[2023-10-10] MEDS: sodium chloride 0.9% 1,000 ML 999 ML IV (09:37)
[2023-10-10 09:56] LABS: Basophils % 0.1 %; Eosinophils # 0.1 10^3/uL (0.0-0.8); Eosinophils % 1.5 %; Hematocrit 30.7 % (36-47); Lymphocytes # 2.1 10^3/uL (1.5-6.5); Lymphocytes % 28.9 %; Mean Corpuscular HGB Conc 33.6 g/dL (30-55); Mean Corpuscular Hemoglobin 28.9 pg (27-33); Mean Corpuscular Volume 86.2 fl (85-98); Mean Platelet Volume 9.9 fL (7.4-10.4); Monocytes # 0.6 10^3/uL (0.2-0.9); Monocytes % 7.8 %; Neutrophils # 4.47 10^3/uL (1.8-8.0); Neutrophils % 61.2 %; Nucleated Red Blood Cells % 0 %; Platelet Count 229 10^3/cmm (157-399); Red Blood Count 3.56 10^6/uL (3.85-5.65); White Blood Count 7.31 10^3/uL (4.5-13.0)
[2023-10-10 10:11] LABS: Alanine Aminotransferase 8 U/L (0-33); Albumin Level 3.7 g/dL (3.5-5.2); Alkaline Phosphatase 135 U/L (35-105); Anion Gap 13.7 (5-19); Aspartate Amino Transferase 17 U/L (0-32); Blood Urea Nitrogen 4 mg/dL (6-20); Calcium 8.3 mg/dL (8.5-10.5); Carbon Dioxide 23 mmol/L (22-29); Chloride 104 mmol/L (98-107); Creatinine Clr Calc Pharmacy 197.2043; Globulin 2.9 g/dL (1.3-4.6); Glomerular Filtration Rate 203.5 mL/min (90-130); Glucose 79 mg/dL (65-115); Lipase 23 U/L (13-60); Osmolality Calculated 280 mOsm/kg (285-295); Potassium 3.7 mmol/L (3.5-5.1); Sodium 137 mmol/L (136-145); Total Bilirubin 0.2 mg/dL (0.15-1.2); Total Protein 6.6 g/dL (6.6-8.7)
--- NOTE | 2023-10-10 11:04 | PC.NURSE ---
Prescription called to [facility], [facility]. For Zofran 4mg PO Q6H PRN nausea. #10, no refills from Dr Ventura.
--- NOTE | 2023-10-10 17:30 | PC.NURSE ---
Morphine 2mg IV given 10/10/23@0937. 2mg waste, witnessed by JOSIANE Thomas. med disposed. did not waste in [place]. when these RNs went to psychiatric to waste pt was d/c from [facility]. JOSIANE Moy notified.
== END 2023-10-10 11:10 | disposition home or self-care (01) ==
LOC: OPOB 07:46 → OBGYN 07:47
PROVIDERS: Visit Provider Family Medicine
DX: O99.891 Other specified diseases and conditions complicating pregnancy (principal); N13.30 Unspecified hydronephrosis
CPT/HCPCS: 36415; 59025; 76770; 76815; 80053; 81001; 83690; 85025; 87086; 96376; 99211; J2270; J2405; J7030

== ENCOUNTER 2023-10-20 09:38 | Outpatient (CLI) | payer MEDICAID, SELFPAY ==
[2023-10-20 09:38] VITALS: BMI 21.9
[2023-10-20 09:49] VITALS: BP 121/69; PULSE 120
[2023-10-20 10:09] VITALS: BP 108/56; PULSE 111
[2023-10-20 10:29] VITALS: BP 118/65; PULSE 125
[2023-10-20 11:09] VITALS: BP 114/71; PULSE 113
[2023-10-20 11:26] VITALS: BP 114/71; PULSE 113; RESP 16; TEMP 36.7
== END 2023-10-20 11:29 | disposition home or self-care (01) ==
LOC: OPOB 09:43 → OBGYN 09:44
PROVIDERS: Family Provider Family Medicine; Visit Provider Family Medicine
DX: O26.899 Other specified pregnancy related conditions, unspecified trimester (principal); Z3A.00 Weeks of gestation of pregnancy not specified; R10.9 Unspecified abdominal pain
CPT/HCPCS: 59025; 99211

== ENCOUNTER 2023-10-20 17:30 | Outpatient (CLI) | payer MEDICAID, SELFPAY ==
[2023-10-20] VITALS (14 sets, daily range): BP systolic 90–119; BP diastolic 60–79; PULSE 84–126; BMI 21.9
[2023-10-20] MEDS: lactated ringers 1,000 ML 125 ML IV (20:10)
[2023-10-20] MEDS: butorphanol 2 mg/mL SDV 1 mL 1 MG IVP (20:10)
[2023-10-21] VITALS (9 sets, daily range): BP systolic 107–124; BP diastolic 62–88; PULSE 85–110; TEMP 35.8
--- NOTE | 2023-10-21 07:00 | PM.OBGYDC ---
Discharge Providers NATURAL HISTORY COLLECTIONS CURATOR Date of Admission: 10/20/2023 Date of Discharge: 10/21/23 Attending Provider at Discharge: Nick Ventura MD Diagnoses at Discharge Discharge Diagnosis (1) Low back pain: Status: Acute Qualifiers: Chronicity: chronic Back pain laterality: unspecified Sciatica presence: without sciatica Qualified Code(s): M54.50 - Low back pain, unspecified; G89.29 - Other chronic pain (2) contractions: Status: Acute Reason for Visit Reason for Visit: contractions Hospital Course Hospital Course This is a 18-year-old -0-1-2 that presented at 35 weeks 5 days with contractions. The patient had been seen earlier that day and had made some mild cervical change from 2 cm to 3 cm. Patient was lavinia every 3 to 5 minutes and was very uncomfortable. Patient was watched mother few hours and made no cervical change, however the contraction pattern did increase slightly and the patient was very uncomfortable. Patient was given IV fluids and pain medications and the patient was observed overnight. Patient continued to have sporadic contractions with intermittent monitoring. heart tones were reassuring. Patient made no significant cervical change overnight. Patient continues to have significant pain but states that it is primarily in her low back. This is the same pain that she has been concerned about over the last several weeks. Denies radiation of her pain. No other concerns. The patient was informed that no intervention could be done at this point given her status. Patient was okay with going home. We will send some medications to help with pain management. They were precautions were given and the patient was informed when to come back. Physical Exam Const: COMMON NORMALS: healthy appearing and alert GENERAL APPEARANCE: in distress (Mild) and anxious HENMT: COMMON NORMALS: moist oral mucous membranes Neck/C-Spine: COMMON NORMALS: no JVD Resp: COMMON NORMALS: normal respiratory effort and No retractions Cardio: COMMON NORMALS: no JVD, regular rate and regular rhythm RATE: regular rate RHYTHM: regular rhythm GI: OTHER: Normal gravid uterus : COMMON NORMALS: Yes no CVA tenderness BLADDER/KIDNEY EXAM: Yes no CVA tenderness Back/Pelvis: COMMON NORMALS: no CVA tenderness and no thoracic nor lumbar tenderness Extremity: COMMON NORMALS: normal to inspection, full ROM and no clubbing, cyanosis or edema Neuro: COMMON NORMALS: moves all extremities, no focal motor deficits and no sensory deficits noted SENSORIUM/ORIENTATION: Yes alert Psych: COMMON NORMALS: mental status grossly normal MOOD & AFFECT: Yes anxious and Yes tearful Skin: COMMON NORMALS: no rashes or lesions noted GENERAL SKIN EXAM: no rashes or lesions noted Discharge Data Studies Completed and Pending Pending at discharge Category Date Time Status Group B Streptococcus Culture Stat Lab 10/20/23 18:03 Received Vitals Last Vital Signs Temp 96.4 F L 10/21/23 04:37 Pulse 95 10/21/23 04:22 BP 108/63 10/21/23 04:22 Results Labs OB ([facility]): Obstetrics US 10/10/23 Blood Type O Positive 01/08/23 Antibody Screen Negative 01/08/23 Hct 30.7 % (36-47) L 10/10/23 Hgb 10.30 g/dL (12.4-14.8) L 10/10/23 Rho(D) Type Positive 01/08/23 Plt Count 229 10^3/cmm (157-399) 10/10/23 TSH 1.27 uIU/mL (0.27-4.20) 07/29/22 Ser , Semi-Qnt 518.60 mIU/mL 01/11/23 HCG, Qual Negative (Negative) 07/29/22 Urine Opiates Screen Negative ng/mL (Negative) 07/29/22 Ur Barbiturates Screen Negative ng/mL (Negative) 07/29/22 Ur Phencyclidine Scrn Negative ng/mL (Negative) 07/29/22 Ur Amphetamines Screen Negative ng/mL (Negative) 07/29/22 U Benzodiazepines Scrn Negative ng/mL (Negative) 07/29/22 Urine Cocaine Screen Negative ng/mL (Negative) 07/29/22 U Marijuana (THC) Screen Positive ng/mL (Negative) H 07/29/22 Micro Urine Specimen 10/10/23 Discharge Plan Discharge Patient Disposition: Home Prescriptions: No Action Vitamin 27 mg iron- 800 mcg Tablet 1 tab PO DAILY Discharge Orders: Discharge Order (Routine); Ordered 10/21/23 Ordered By: Nick Ventura Diet: Usual diet Activity: Limit activity as instructed Discharge Attestations NATURAL HISTORY COLLECTIONS CURATOR Time Spent in Discharge Care*: greater than 30 min Coding Level of Care Code Acute Code for Chg Fwd Diagnoses Chronic low back pain without sciatica, unspecified back pain laterality M54.50; G89.29 Chronicity: chronic Back pain laterality: unspecified Sciatica presence: without sciatica contractions O47.9
--- NOTE | 2023-10-21 07:45 | PC.NURSE ---
stated I will call in Reklaw for pain,don't abuse it, follow the label instructions. William JOSHUA educated pt on Reklaw and pt reports she understands education.
== END 2023-10-21 07:49 | disposition home or self-care (01) ==
LOC: OPOB 17:37 → OBGYN 17:38
PROVIDERS: Family Provider Family Medicine; Visit Provider Family Medicine
DX: O47.9 False labor, unspecified (principal); Z3A.35 35 weeks gestation of pregnancy; M54.50 Low back pain, unspecified; G89.29 Other chronic pain
CPT/HCPCS: 36415; 59025; 87081; 96374; 99211; J0595; J7120

== ENCOUNTER 2023-10-23 08:51 | Outpatient (CLI) | payer MEDICAID, SELFPAY ==
[2023-10-23 09:12] VITALS: TEMP 35.7
[2023-10-23 09:17] VITALS: BMI 21.7
[2023-10-23 09:27] VITALS: BP 110/61; PULSE 95
[2023-10-23 09:38] VITALS: BP 109/63; PULSE 86
== END 2023-10-23 09:50 | disposition home or self-care (01) ==
LOC: OPOB 08:57 → OBGYN 08:58
PROVIDERS: Family Provider Family Medicine; Visit Provider Family Medicine
DX: O36.8190 Decreased fetal movements, unspecified trimester, not applicable or unspecified (principal); Z3A.00 Weeks of gestation of pregnancy not specified
CPT/HCPCS: 59025; 99211

== ENCOUNTER 2023-10-28 22:43 | Outpatient (CLI) | payer MEDICAID, SELFPAY ==
[2023-10-28 22:43] VITALS: BMI 22.3
[2023-10-28 22:54] VITALS: BP 111/68; PULSE 112
[2023-10-29 01:01] VITALS: BP 117/70; PULSE 95
== END 2023-10-29 01:08 | disposition home or self-care (01) ==
LOC: OPOB 22:50 → OBGYN 22:53
PROVIDERS: Family Provider Family Medicine; Visit Provider Family Medicine
DX: O26.899 Other specified pregnancy related conditions, unspecified trimester (principal); Z3A.00 Weeks of gestation of pregnancy not specified
CPT/HCPCS: 59025; 99211

== ENCOUNTER 2023-10-29 06:51 | Inpatient (IN) | payer MEDICAID, SELFPAY ==
[2023-10-29] VITALS (99 sets, daily range): BP systolic 80–135; BP diastolic 51–79; PULSE 80–123; RESP 16; TEMP 36.5; O2SAT 98–100; BMI 22.3
[2023-10-29] MEDS: lactated ringers 1,000 ML 999 ML IV (06:46)
[2023-10-29 06:47] LABS: Basophils % 0.2 %; Eosinophils # 0.1 10^3/uL (0.0-0.8); Eosinophils % 1.1 %; Hematocrit 31.7 % (36-47); Lymphocytes # 2.7 10^3/uL (1.5-6.5); Mean Corpuscular HGB Conc 33.1 g/dL (30-55); Mean Corpuscular Hemoglobin 28.5 pg (27-33); Mean Corpuscular Volume 86.1 fl (85-98); Mean Platelet Volume 10.2 fL (7.4-10.4); Monocytes # 0.8 10^3/uL (0.2-0.9); Monocytes % 7.5 %; Neutrophils # 6.33 10^3/uL (1.8-8.0); Neutrophils % 63.7 %; Nucleated Red Blood Cells % 0 %; Platelet Count 245 10^3/cmm (157-399); Red Blood Count 3.68 10^6/uL (3.85-5.65); White Blood Count 9.95 10^3/uL (4.5-13.0)
--- NOTE | 2023-10-29 07:29 | PM.OBGYHP ---
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 Patient had been seen earlier in the night and was having irregular contractions that time but was not making cervical change. Patient was discharged home where she was able to get some sleep. However, the patient started having contractions again about 4 AM that were regular and very painful. Upon arrival the nurse did a spot vaginal check and she was dilated to 5 cm which was a change from previous check. Patient was admitted at that time. Patient was requesting epidural. care has been unremarkable except for positive marijuana on initial drug screen. Patient has denied any drug use since. GBS was negative. Present Details : 4 Para: 2 care: good care Ultrasounds: normal 1st trimester US and normal mid trimester US Obstetrical complications: none Medical complications OB: none Labs Blood type OB HPI: O (+) positive Rubella: Immune RPR: Negative GBS: Negative HBsAG: Negative Review of Systems Const: Denies: fever(s), chills, fatigue or malaise Resp: Denies: dyspnea GI: Reports: abdominal pain; Denies: nausea or vomiting : Denies: flank pain, dysuria, urinary frequency or urinary urgency Skin/Breast: Denies: rash or pruritus Medications/Allergies Home Medications Medication Instructions Recorded Confirmed Last Taken Type vits no.124-ferrous fum 1 tab PO DAILY 10/10/23 10/28/23 10/28/23 History 27 mg iron-folic acid 800 mcg tablet ( Vitamin) Allergies Allergy/AdvReac Type Severity Reaction Status Date / Time No Known Allergies Allergy Verified 10/28/23 23:26 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 PFSH: Medical History No pertinent family history Surgical History No pertinent past surgical history Social History Smoking and tobacco/nicotine status: current every day tobacco/nicotine user e-cigarettes E-Cigarette Details: vaporizer device Second hand smoke exposure: Yes Alcohol intake: never Substance/Drug Use: never Vitals/I&O/Wt Last Vital Signs Pulse 98 10/29/23 07:26 Resp 16 10/29/23 06:32 BP 101/68 10/29/23 07:19 Pulse Ox 100 10/29/23 07:26 O2 Del Method Room Air 10/29/23 06:35 Weight last 48 hrs Weight 58.967 kg Physical Exam Const: COMMON NORMALS: healthy appearing and alert GENERAL APPEARANCE: in distress (Mild) and anxious HENMT: COMMON NORMALS: moist oral mucous membranes Neck/C-Spine: COMMON NORMALS: no JVD Resp: COMMON NORMALS: normal respiratory effort and No retractions Cardio: COMMON NORMALS: no JVD, regular rate and regular rhythm RATE: regular rate RHYTHM: regular rhythm GI: OTHER: Normal gravid uterus : COMMON NORMALS: Yes no CVA tenderness BLADDER/KIDNEY EXAM: Yes no CVA tenderness Back/Pelvis: COMMON NORMALS: no CVA tenderness and no thoracic nor lumbar tenderness Extremity: COMMON NORMALS: normal to inspection, full ROM and no clubbing, cyanosis or edema Neuro: COMMON NORMALS: moves all extremities, no focal motor deficits and no sensory deficits noted SENSORIUM/ORIENTATION: Yes alert Psych: COMMON NORMALS: mental status grossly normal MOOD & AFFECT: Yes anxious and Yes tearful Skin: COMMON NORMALS: no rashes or lesions noted GENERAL SKIN EXAM: no rashes or lesions noted Data 10/29/23 06:25 Results Labs OB ([facility] Obstetrics US 10/10/23 Blood Type O Positive 01/08/23 Antibody Screen Negative 01/08/23 Hct 31.7 % (36-47) L 10/29/23 Hgb 10.50 g/dL (12.4-14.8) L 10/29/23 Rho(D) Type Positive 01/08/23 Plt Count 245 10^3/cmm (157-399) 10/29/23 TSH 1.27 uIU/mL (0.27-4.20) 07/29/22 Ser , Semi-Qnt 518.60 mIU/mL 01/11/23 HCG, Qual Negative (Negative) 07/29/22 Urine Opiates Screen Negative ng/mL (Negative) 07/29/22 Ur Barbiturates Screen Negative ng/mL (Negative) 07/29/22 Ur Phencyclidine Scrn Negative ng/mL (Negative) 07/29/22 Ur Amphetamines Screen Negative ng/mL (Negative) 07/29/22 U Benzodiazepines Scrn Negative ng/mL (Negative) 07/29/22 Urine Cocaine Screen Negative ng/mL (Negative) 07/29/22 U Marijuana (THC) Screen Positive ng/mL (Negative) H 07/29/22 Micro Urine Specimen 10/10/23 A&P Assessment and plan (1) Term : Proceed with routine labor management. Epidural as requested. (2) 37 weeks gestation of : Attestations Medical Necessity Statement*: Admit for labor. Anticipate at least 1 midnight stay. Coding Level of Care Code Acute Code for Chg Fwd Diagnoses Term Z34.90 37 weeks gestation of Z3A.37
[2023-10-29] MEDS: ROPivacaine syringe 100 MG/50 ML SYRINGE 10 MG EPIDURAL ×3 (07:40→14:36)
[2023-10-29] MEDS: dextrose 5%-lactated ringers 1,000 ML 125 ML IV (07:41)
[2023-10-29] MEDS: ondansetron 2 mg/ML SDV 2 mL 4 MG IVP (08:18)
--- NOTE | 2023-10-29 08:37 | P.ANESASSM_ITS ---
Pre-Anesthetic Assessment Height/Weight: Height 1.63 m Weight 58.967 kg Pulse Resp BP Pulse Ox O2 Del Method 88 16 86/57 100 Room Air 10/29/23 08:27 10/29/23 06:32 10/29/23 08:27 10/29/23 08:21 10/29/23 06:35 epidural Familial anesthetic complications: none Was Beta Arleen taken within 24 hours: N/A Was Clonidine taken within 24 hours: N/A Last intake: > 8 hrs Exam alert, oriented x 3, clear to auscultation bilaterally and regular rate & rhythm Airway Dentition: full Anesthetic Plan ASA status: 2 Anesthesia: Regional (specify below) Risk of > 500 ml blood loss (7ml/kg in children): No Medications/Allergies Home Medications Medication Instructions Recorded Confirmed Last Taken Type vits no.124-ferrous fum 1 tab PO DAILY 10/10/23 10/28/23 10/28/23 History 27 mg iron-folic acid 800 mcg tablet ( Vitamin) Allergies Allergy/AdvReac Type Severity Reaction Status Date / Time No Known Allergies Allergy Verified 10/28/23 23:26 Current Medications Generic Name Dose Route Start Last Admin Trade Name Freq PRN Reason Stop Dose Admin Dextrose/Lactated Ringer's 1,000 mls @ 125 mls/hr 10/29/23 06:45 10/29/23 07:41 Dextrose 5%-Lactated Ringers IV 125 mls/hr .Q8H CARLOTTA Administration Lactated Ringer's 1,000 mls @ 999 mls/hr 10/29/23 06:32 10/29/23 06:46 Lactated Ringers IV 999 mls/hr .Q1H1M PRN Administration See label comments Ropivacaine 100 mg in 50 mls @ 10 mls/hr 10/29/23 06:45 10/29/23 07:40 Naropin Syringe EPIDURAL 10 mls/hr .Q5H CARLOTTA Administration Ondansetron HCl 4 mg 10/29/23 06:32 10/29/23 08:18 Ondansetron 2 Mg/Ml Sdv 2 Ml IVP 4 mg Q4H PRN Administration NAUSEA AND VOMITING PFSH Anesthesia Medical History No pertinent family history Surgical History No pertinent past surgical history Social History Smoking and tobacco/nicotine status: current every day tobacco/nicotine user e- cigarettes E-Cigarette Details: vaporizer device Second hand smoke exposure: Yes Alcohol intake: never Substance/Drug Use: never Female Reproductive History : 4 Data Anesthesia 10/29/23 06:25 Short CBC 10/29/23 Range/Units 06:25 WBC 9.95 (4.5-13.0) 10^3/uL Hgb 10.50 L (12.4-14.8) g/dL Hct 31.7 L (36-47) % MCV 86.1 (85-98) fl Plt Count 245 (157-399) 10^3/cmm Neut % (Auto) 63.7 % Neut # (Auto) 6.33 (1.8-8.0) 10^3/uL Blood Bank 10/29/23 06:25 Blood Type O Positive Rho(D) Type Rh positive Antibody Screen Negative Cardiac Studies: 2 No Data to Display Anesthesia Procedures Epidural Time Out Performed: Yes Consents Signed: Procedure Consent Consent: requested by attending/covering physician, from patient, from other and risks and benefits reviewed Lumbar Level: L3-L4 Epidural position: sitting Epidural procedure: sterile prep of area, 1% lidocaine to numb the area, 18 g needle, negative for paresthesia passed, neg for paresthesia, test dose given, 1.5% xylocaine 1:200k epi (5), 0.2% Ropivacaine bolus ml (5), placed PCEA, no systemic response, sterile dressing applied, L.U.D. no apparent complications and 0.2% Ropiavacaine @ mls/hr (13)
--- NOTE | 2023-10-29 09:06 | PM.MISC ---
Miscellaneous Note Purpose of Documentation: dyspnea Note: report that patient feels like she's having some difficulty breathing when laying down, she states its more a sensation of tightness in chest makes difficult to breath, no respiratory distress, RR wnl, no O2 desaturation. BP stable. Able to move all extremities. She states it goes away upon sitting. Patient's rate down to 10 ml/hr. Currently no patient distress upon exam. Will continue to observe, suggested not using bolus button unless necessary to keep epidural infusion to minimum necessary
[2023-10-29] MEDS: acetaminophen 325 mg Tablet 650 MG PO (10:56)
[2023-10-29] MEDS: oxytocin 30 UNIT/500 ML BAG IV (11:24)
[2023-10-29] MEDS: loperamide 2 mg Capsule PO (14:36)
[2023-10-29] MEDS: lactated ringers 1,000 ML 125 ML IV (15:24)
--- NOTE | 2023-10-29 16:19 | PM.DELIVERY ---
Delivery Note: Date of delivery: October 29, 2023 Pre-delivery diagnoses: Term intrauterine Post-delivery diagnoses: Same, viable male Procedure: Spontaneous vaginal delivery Delivering Physician: Live Ventura MD Estimated blood loss (mL): 150 Pre-Delivery Course: This is a 18-year-old G3, P3 that presented at 37 weeks with contractions. The patient had made slow progression to will approximately 5 to 6 cm, but dilation slowed and contractions became more sporadic. Patient's labor was then augmented with Pitocin and artificial rupture membranes and the patient progressed as expected to complete dilation. Delivery: Once patient was completely dilated, the patient started pushing with contractions. Within 2 contractions the patient delivered a viable male without difficulty. The was then placed on tube mother's abdomen and after delay the cord was clamped and cut. Placenta was then delivered without issues. View of the perineum showed some mild labial first-degree repair that was not actively bleeding and no repair was required. Uterus was firm and bleeding was coming controlled. Post-Delivery Status: Stable History History History 3 Term 1 2 Miscarriages/Ectopic 0 Living Children 3 A&P Assessment and plan (1) Normal spontaneous vaginal delivery: Proceed with routine care. Coding Level of Care Code Acute Code for Chg Fwd Diagnoses Normal spontaneous vaginal delivery O80
[2023-10-29] MEDS: HYDROcodone-acetaminophen 5-325 mg Tablet PO (19:31)
[2023-10-29] MEDS: ibuprofen 800 mg tablet PO (20:09)
[2023-10-30 02:00] VITALS: BP 91/54; PULSE 86; RESP 16; TEMP 36.8; O2SAT 98
[2023-10-30] MEDS: HYDROcodone-acetaminophen 5-325 mg Tablet PO ×2 (02:16→13:38)
[2023-10-30] MEDS: benzocaine-menthol 78 gm Canister 1 SPRAY TOPICAL (02:18)
[2023-10-30] MEDS: lanolin oint 7 gm 1 APPLIC TOPICAL (05:09)
[2023-10-30 05:13] LABS: Mean Corpuscular Hemoglobin 28.5 pg (27-33); Mean Corpuscular Volume 86.5 fl (85-98); Mean Platelet Volume 10.3 fL (7.4-10.4); Platelet Count 200 10^3/cmm (157-399); Red Blood Count 3.12 10^6/uL (3.85-5.65); Red Cell Distribution Width 13.1 % (12.1-15.1); White Blood Count 10.26 10^3/uL (4.5-13.0)
[2023-10-30 06:00] VITALS: BP 109/75; PULSE 77; RESP 16; TEMP 36.6; O2SAT 99
--- NOTE | 2023-10-30 08:00 | ANE.PACU2 ---
Inpatient post-anesthesia follow up: Airway intact: Yes Vital signs: Temperature 98.0 F Pulse Rate 76 Respiratory Rate 16 Blood Pressure 97/62 Pulse Oximetry 99 Oxygen Delivery Me thod Room Air Oxygen Flow Rate Fraction of Inspir ed Oxygen Hydration adequate: Yes Nausea and vomiting: No Pain level: 1 Mental status: Baseline Epidural Start/End: Epidural Start Date: 10/29/23 Epidural Start Time: 07:30 Epidural End Date: 10/29/23 Epidural End Time: 16:15
[2023-10-30] MEDS: PRENATAL VIT NO.130/IRON/FOLIC 1 EACH TABLET PO (08:05)
[2023-10-30] MEDS: ibuprofen 800 mg tablet PO ×2 (08:05→16:21)
[2023-10-30] MEDS: amoxicillin 500 mg Capsule PO ×2 (08:08→16:21)
[2023-10-30 11:05] VITALS: BP 95/55; PULSE 83; RESP 17; TEMP 36.7; O2SAT 98
--- NOTE | 2023-10-30 12:33 | P.DS_ITS ---
Discharge Providers Date of Admission: 10/29/23 06:51 Date of Discharge: October 30, 2023 Attending Provider at Admission: Nick Ventura MD Attending Provider at Discharge: Nick Ventura MD Primary Care Provider: Rosalino Denney MD Diagnoses at Discharge Discharge Diagnosis (1) Normal spontaneous vaginal delivery: Status: Acute Reason for Visit Reason for Visit: contractions Hospital Course Hospital Course This is a 18-year-old G3 now P3 who had a normal spontaneous vaginal delivery of a 37-week male . Mother has done well . She is ambulating, tolerating a regular diet, has decreased vaginal bleeding and is comfortable with discharge home. Her hemoglobin was 8.9 and she was not experiencing any dizziness shortness of breath or chest pain. Physical Exam Narrative: Alert and oriented resting in bed with infant, heart regular rate and rhythm, lungs clear to auscultation bilaterally, abdomen is soft and nontender, fundus is firm and U -2, extremities have no edema and no calf tenderness. Urinary Catheter Management: [place]: Cath Placed During This Visit: yes Urinary Catheter Date of Insertion: 10/29/23 Urinary Catheter Time of Insertion: 08:21 Discharge Data Studies Completed and Pending Laboratory Results WBC 10.26 10^3/uL (4.5-13.0) 10/30/23 04:47 RBC 3.12 10^6/uL (3.85-5.65) L 10/30/23 04:47 Hgb 8.90 g/dL (12.4-14.8) L 10/30/23 04:47 Hct 27.0 % (36-47) L 10/30/23 04:47 MCV 86.5 fl (85-98) 10/30/23 04:47 MCH 28.5 pg (27-33) 10/30/23 04:47 MCHC 33.0 g/dL (30-55) 10/30/23 04:47 RDW 13.1 % (12.1-15.1) 10/30/23 04:47 Plt Count 200 10^3/cmm (157-399) 10/30/23 04:47 MPV 10.3 fL (7.4-10.4) 10/30/23 04:47 Neut % (Auto) 63.7 % 10/29/23 06:25 Lymph % (Auto) 27.0 % 10/29/23 06:25 [place] % (Auto) 7.5 % 10/29/23 06:25 Eos % (Auto) 1.1 % 10/29/23 06:25 Baso % (Auto) 0.2 % 10/29/23 06:25 Neut # (Auto) 6.33 10^3/uL (1.8-8.0) 10/29/23 06:25 Lymph # (Auto) 2.7 10^3/uL (1.5-6.5) 10/29/23 06:25 [place] # (Auto) 0.8 10^3/uL (0.2-0.9) 10/29/23 06:25 Eos # (Auto) 0.1 10^3/uL (0.0-0.8) 10/29/23 06:25 Baso # (Auto) 0.0 10^3/uL (0.0-0.1) 10/29/23 06:25 Nucleated RBC % (auto) 0 % 10/29/23 06:25 Nucleated RBCs # 0.0 /100WBC 10/29/23 06:25 Blood Type O Positive 10/29/23 06:25 Rho(D) Type Rh positive 10/29/23 06:25 Antibody Screen Negative 10/29/23 06:25 Vitals Last Vital Signs Temp 98.1 F 10/30/23 11:05 Pulse 83 10/30/23 11:05 Resp 17 10/30/23 11:05 BP 95/55 10/30/23 11:05 Pulse Ox 98 10/30/23 11:05 O2 Del Method Room Air 10/30/23 11:05 Discharge Plan Discharge Patient Disposition: Home Prescriptions: Continued Vitamin 27 mg iron- 800 mcg Tablet 1 tab PO DAILY Discharge Orders: Discharge Order (Routine); Ordered 10/30/23 Ordered By: Anh Ayon Referrals: Nick Ventura MD [Family Provider] - 1 month Discharge Diet: Usual diet Discharge Activity: Limit activity as instructed Patient Instructions: Depression (DC), Opioid Safety (DC), Preeclampsia and Eclampsia After Delivery (GEN), Hemorrhage (DC), OB Discharge Report, OB Food/Drug Interaction Guide, OB Care at Home, Opioid Safety, OB Vaginal Deliveries, Abnormal Bleeding Activity Restrictions/Additional Instructions: Nothing per vagina for 6 weeks. Discharge Attestations Time Spent in Discharge Care*: less than 30 min Quality Metrics Clinical Quality Measures [ No reported AMI, CVA or VTE this stay] Coding Level of Care Code Acute Code for Chg Fwd Diagnoses Normal spontaneous vaginal delivery O80
[2023-10-30 17:00] VITALS: BP 97/62; PULSE 76; RESP 16; TEMP 36.7; O2SAT 99
== END 2023-10-30 17:35 | disposition home or self-care (01) | DRG 807 ==
LOC: OPOB 06:52 → OBGYN 06:52
PROVIDERS: Admitting Provider Family Medicine; Family Provider Family Medicine; PCP Family Medicine; Visit Provider Family Medicine
DX: O99.334 Smoking (tobacco) complicating childbirth (principal); Z37.0 Single live birth; F17.290 Nicotine dependence, other tobacco product, uncomplicated; Z3A.37 37 weeks gestation of pregnancy; O70.0 First degree perineal laceration during delivery
CPT/HCPCS: 36415; 51702; 59409; 85025; 85027; 86850; 86900; 96374; J2405; J2590; J2795; J7120; J7121

== ENCOUNTER 2023-11-21 14:16 | Emergency (ER) | payer MEDICAID, SELFPAY ==
[2023-11-21 14:20] VITALS: BP 112/63; PULSE 85; RESP 15; TEMP 36.6; O2SAT 98; BMI 20.2
--- NOTE | 2023-11-21 14:58 | W.ED.DENTAL ---
HPI - Dental/Oral General: Chief complaint: Dental/Oral Stated complaint: severe jaw pain, headache Time Seen by Provider: 11/21/23 14:50 History of Present Illness: 18-year-old female who had a wisdom tooth pulled a couple weeks ago who presents today with pain in her jaw. Says she completed her antibiotics and developed pain over the last couple of days. No obvious swelling.. She may have a dry socket. She has made an appointment with her dentist. Review of Systems Narrative: Constitutional symptoms: Negative except as documented in HPI. Skin symptoms: Negative except as documented in HPI. Eye symptoms: Negative except as documented in HPI. ENMT symptoms: Negative except as documented in HPI. Respiratory symptoms: Negative except as documented in HPI. Cardiovascular symptoms: Negative except as documented in HPI. Gastrointestinal symptoms: Negative except as documented in HPI. Genitourinary symptoms: Negative except as documented in HPI. Musculoskeletal symptoms: Negative except as documented in HPI. Neurologic symptoms: Negative except as documented in HPI. Psychiatric symptoms: Negative except as documented in HPI. Endocrine symptoms: Negative except as documented in HPI. [facility] ED PFSH: Medical History No pertinent family history Surgical History No pertinent past surgical history Social History Smoking and tobacco/nicotine status: current every day tobacco/nicotine user e-cigarettes E-Cigarette Details: vaporizer device Second hand smoke exposure: Yes Alcohol intake: never Substance/Drug Use: never Physical Exam Narrative: EXAM NARRATIVE: General: Alert, no acute distress. Skin: warm and dry Head: Normocephalic Neck: Trachea midline Eye: Extraocular movements are intact. Ears, nose, mouth and throat: Oral mucosa moist, no obvious signs of infection but I do think she may be developing a dry socket. Respiratory: Respirations are non-labored Musculoskeletal: Normal ROM Neurological: Alert and oriented, No focal neurological deficit observed. Psychiatric: Cooperative, appropriate mood & affect. Course Vital Signs: Vital signs: Vital Signs Temperature 97.8 F 11/21/23 14:20 Pulse Rate 85 11/21/23 14:20 Respiratory Rate 15 11/21/23 14:20 Blood Pressure 112/63 11/21/23 14:20 Pulse Oximetry 98 11/21/23 14:20 Oxygen Delivery Me thod Room Air 11/21/23 14:20 MDM - Dental/Oral Medical Decision Making Assessment and plan: Dry socket/dental infection - Discharged home - Discussed plan with patient. Answered any questions. - Evaluation and treatment of this problem were appropriate in the emergency setting. No radiology studies performed this visit Discharge Plan Discharge Patient Disposition: Home Clinical Impression: Jaw pain, Dental infection Condition: Stable Prescriptions: New tramadol 50 mg tablet 50 mg PO Q8H PRN (Reason: pain) Qty: 20 0RF diclofenac sodium 50 mg tablet,delayed release (DR/EC) 50 mg PO Q12H Qty: 20 0RF amoxicillin-pot clavulanate 875-125 mg tablet 1 tab PO BID 10 Days Qty: 20 0RF No Action Vitamin 27 mg iron- 800 mcg Tablet 1 tab PO DAILY Discharge Orders: Discharge ED (Routine); Ordered 11/21/23 Ordered By: Emily Reinoso Referrals: Nick Ventura MD [Family Provider] - 4-7 days Rosalino Denney MD [Primary Care Provider] - Discharge Diet: Advance as tolerated Discharge Activity: Increase activity as tolerated Patient Instructions: Opioid Safety, Pain Management Activity Restrictions/Additional Instructions: Please follow-up with a dentist as soon as possible. In the meantime you can try using ice on your jaw. And alternate with heat. Try salt water rinses. Take pain medications as instructed. Thank you for choosing [facility] for your healthcare needs today. Please realize this is an emergency room and that we are providing you with a medical screening exam and this may not be complete and all inclusive of all the testing and or work up that you may need to determine your ailment or severity of your illness. You have been screened and evaluated and felt safe for discharge. Health conditions do change or evolve sometimes and as such it is important that you follow up with your Primary Doctor to be re checked, 3-5 days is a general good time frame for follow up. You are always welcome to return to the ED for re assessment if your symptoms are worsening or you have new concerns Coding Level of Care Code ED Fretted Instrument Repairer for Carlos Zepeda
[2023-11-21 15:12] VITALS: BP 111/76; PULSE 85; RESP 16; O2SAT 100
== END 2023-11-21 15:16 | disposition home or self-care (01) ==
PROVIDERS: Emergency Provider Emergency Medicine; Family Provider Family Medicine; PCP Family Medicine
DX: R68.84 Jaw pain (principal); K04.7 Periapical abscess without sinus; F17.290 Nicotine dependence, other tobacco product, uncomplicated
CPT/HCPCS: 99283

== ENCOUNTER 2024-09-23 19:24 | Emergency (ER) | payer MEDICAID, SELFPAY ==
[2024-09-23 19:27] VITALS: BP 104/47; PULSE 100; RESP 16; TEMP 37.2; O2SAT 99; BMI 22.3
[2024-09-23 20:01] VITALS: BP 118/71; PULSE 85; RESP 16; O2SAT 100
--- NOTE | 2024-09-23 20:19 | USR_ITS ---
PROCEDURE INFORMATION: Exam: US , Transvaginal Exam date and time: 09/23/2024 8:37 PM Age: 19 years old Clinical indication: complicated by abdominal or pelvic pain; Generalized abdominal pain; First trimester (<14 weeks 0 days); Gestational age or lmp: 3w 2d by lmp; ; G5-p3-a1-l3 presenting with intense bilateral lower quadrant cramping and scant vaginal bleeding; Additional info: Pelvic pain, 2 weeks preg based on [facility] LABS AND CLINICAL REPORTS: Choriogonadotropin in serum (Serum HCG): 456 mIU/mL Last menstrual period start date: 08/31/2024 Gestational age (Established): 3 w 2 d Estimated due date (Established): 06/07/2025 TECHNIQUE: Imaging protocol: Real-time transvaginal obstetrical ultrasound of the maternal pelvis with image documentation. Transvaginal imaging was used for better evaluation of the fetus, adnexa, and/or cervix. COMPARISON: US OB limited [id number] 10/10/2023 9:55 AM FINDINGS: Gestation: An ovoid sac-like structure is seen within the endometrial canal. However, no pole is visualized. BIOMETRY: Mean sac diameter: 1.68 cm. EGA (MSD) is 6 w 4 d MATERNAL: Uterus: Uterus measures 8.8 cm x 6.6 cm x 4.6 cm. Right ovary/adnexa: Right ovary measures 3.9 cm x 2.3 cm x 3.8 cm. Right ovarian volume is 17.6 mL. Normal waveforms on color Doppler imaging Left ovary/adnexa: Left ovary measures 2.9 cm x 3 cm x 2.3 cm. Left ovarian volume is 10.3 mL. Normal waveforms on color Doppler imaging. Intraperitoneal space: Small to moderate free fluid in the pelvis. US/US OB transvaginal [id number] IMPRESSION: Possible gestational sac within the endometrial canal. No pole visualized, likely too early for dates. Correlate with beta HCG levels and consider short interval imaging follow-up for further evaluation.
[2024-09-23 20:38] LABS: Bilirubin Urine Negative (Negative); Blood Urine 3+ (Negative); Glucose Urine UA Negative (Normal); Ketones Urine Negative (Negative); Leukocyte Esterase Urine Negative (Negative); Nitrate Urine Negative (Negative); Protein Urine Negative (Negative); Urine Appearance Clear (CLEAR); Urine Color Yellow (Yellow)
[2024-09-23 20:43] LABS: Add Urine Microscopic? YES; Bacteria Urine None Seen /hpf; RBC Urine 0-2 /hpf (0-2)
--- NOTE | 2024-09-23 20:47 | ED_ITS ---
HPI - 2 General: Chief complaint: Vaginal Bleeding Stated complaint: Preg\Bleeding Cramps Time Seen by Provider: 09/23/24 20:08 Source: patient Mode of arrival: ambulatory Limitations: no limitations History of Present Illness: Patient is a 19-year-old female who presents the emergency department complaining of lower abdominal cramping bleeding yesterday. She states that she took a urine test on the of this month, it was positive. States her last menstrual period ended on 09/05. She is , states she has had cramping like this in the past but never this severe. Notes that it is to the pelvic region and does radiate towards her back some. Also has had mild spotting. Has not taken any medications. No vaginal discharge or odor reported. No urinary symptoms but does report a history of UTI during . Has only taken the 1 at home urine test, no blood confirmation and has not seen regular provider. Vitals within normal limits at this time. MD Complaint: abdominal pain and vaginal bleeding (Spotting) Onset (ago): day(s) Pain Consistency: constant Location: pelvis Severity: mild Quality: Cramping Radiation: other (Back) Date of Last Menstrual Period: 08/31/24 Associated symptoms: Reports abdominal pain ( Pelvic pain ); Deny dysuria, headache(s), nausea or vomiting Related Data : 4 Home Medications ?Medication ?Instructions ?Recorded ?Confirmed vits no.124-ferrous fum 1 tab PO DAILY 10/30/23 27 mg iron-folic acid 800 mcg tablet ( Vitamin) Previous Rx's ?Medication ?Instructions ?Recorded diclofenac sodium 50 mg 50 mg PO Q12H #20 tabs 11/20 tablet,delayed release tramadol 50 mg tablet 50 mg PO Q8H PRN pain #20 ta bs 11/21/23 Allergies Allergy/AdvReac Type Severity Reaction Status Date / Time No Known Allergies Allergy Verified 09/23/24 19:33 Review of Systems 2 General: Reports: 10 or more systems reviewed and unremarkable except in HPI and below Const: Denies: fever(s), chills, change in appetite, change in weight or diaphoresis ENMT: Denies: throat pain or hoarseness Card: Denies: chest pain, palpitations or lightheadedness Resp: Denies: dyspnea, productive cough or wheezing GI: Reports: abdominal pain ( Pelvic pain ); Denies: nausea, vomiting, diarrhea, constipation, bloating, change in stool character or hematochezia : Reports: vaginal bleeding (Spotting) and pelvic pain; Denies: flank pain, difficulty voiding, dysuria, urinary frequency or urinary urgency Musc: Reports: back pain; Denies: neck pain Skin/Breast: Denies: rash or new lesions Neuro: Denies: headache(s) or dizziness PFSH ED 2 PFSH: Medical History No pertinent family history Surgical History No pertinent past surgical history Social History Smoking and tobacco/nicotine status: current every day tobacco/nicotine user e- cigarettes E-Cigarette Details: vaporizer device Second hand smoke exposure: Yes Alcohol intake: never Substance/Drug Use: never Female Reproductive History: Date of last menstrual period: 08/31/24 G ravida: 4 Physical Exam 2 Const: COMMON NORMALS: no acute distress, average body habitus, patient oriented x3, no limitations, healthy appearing, alert and well nourished G ENERAL APPEARANCE: cooperative and comfortable ORIENTATION/CONSCIOUSNESS: Yes awake Eye: COMMON NORMALS: Equal, round and reactive pupils present, EOMs intact bilaterally, conjunctivae normal and normal visual kwan by confrontation C ONJUNCTIVA: Yes conjunctivae normal PUPIL: Yes Equal, round and reactive pupils present Neck/C-Spine: COMMON NORMALS: full ROM, supple, no meningeal signs and no JVD Resp: COMMON NORMALS: normal respiratory effort, No retractions, No use of accessory muscles and clear to auscultation bilaterally AUSCULTATION: clear to auscultation bilaterally, no crackles, no rales, no rhonchi and no wheezes Cardio: COMMON NORMALS: no JVD, regular rate, regular rhythm, S1 normal heart sound present, S2 normal heart sound present, No gallops present (Cardio), No clicks present (Cardio), No murmurs present (Cardio), No rub (Cardio) and Peripheral pulses 2+ throughout RATE: regular rate RHYTHM: regular rhythm HEART SOUNDS: S1 normal heart sound present and S2 normal heart sound present PERIPHERAL PULSES: Peripheral pulses 2+ throughout GI: COMMON NORMALS: Normal to inspection, nondistended, normoactive bowel sounds present, Soft to palpation, No hepatosplenomegaly present and no masses AUSCULTATION: Yes normoactive bowel sounds PALPATION: Yes Soft to palpation, No Guarding due to palpation present (GI), No Rigid due to palpation and Yes No hepatosplenomegaly present RECTAL EXAM: deferred OTHER: Tender very light palpation to lower abdomen/suprapubic/pelvic region : COMMON NORMALS: Yes no CVA tenderness BLADDER/KIDNEY EXAM: Yes no CVA tenderness Back/Pelvis: COMMON NORMALS: no CVA tenderness Extremity: COMMON NORMALS: normal to inspection and full ROM Neuro: COMMON NORMALS: patient oriented x3, moves all extremities, no focal motor deficits and no sensory deficits noted SENSORIUM/ORIENTATION: Yes alert MENINGEAL SIGNS: Yes no meningeal signs Psych: COMMON NORMALS: mental status grossly normal, cooperative and speech normal SPEECH: Yes normal speech Skin: COMMON NORMALS: no rashes or lesions noted GENERAL SKIN EXAM: no rashes or lesions noted Course 2 Vital Signs: Vital signs: Vital Signs Temperature 99 F 09/23/24 19:27 Pulse Rate 104 H 09/23/24 21:19 Respiratory Rate 16 09/23/24 20:01 Blood Pressure 110/71 09/23/24 21:19 Pulse Oximetry 100 09/23/24 21:19 Oxygen Delivery Me thod Room Air 09/23/24 20:01 MDM - OB/Uterine Contractions Medical Decision Making Patient presenting with pelvic cramping and spotting. Stating she took a positive urine test on 09/16, last normal menstrual period was few weeks ago. This is her fifth , history of 1 miscarriage. Physical exam showed easily reproducible tenderness to palpation to lower abdomen, she was treated with Tylenol and noted to be improved with her pain on recheck. Her blood work was normal, hemoglobin was normal, no signs of infection on urinalysis. Beta-hCG appears appropriate for her likely gestational age. Transvaginal ultrasound not show any sign of an ectopic or other acute surgical abnormalities. I believe this is physiologic change in and informed her to follow-up with her regular doctor tomorrow for general reevaluation. Also gave her return precautions as if she has worsening bleeding, worsening pain, she will return for further eval. Lab Data 09/23/24 19:56 Radiology Impressions Transvaginal US 09/23/24 20:19 IMPRESSION: Possible gestational sac within the endometrial canal. No pole visualized, likely too early for dates. Correlate with beta HCG levels and consider short interval imaging follow-up for further evaluation. Laboratory Results WBC 7.41 10^3/uL (3.29-11.43) 09/23/24 19:56 RBC 4.30 10^6/uL (3.85-5.65) 09/23/24 19:56 Hgb 11.80 g/dL (11.27-16.99) 09/23/24 19:56 Hct 36.8 % (36-47) 09/23/24 19:56 MCV 85.6 fl (85-98) 09/23/24 19:56 MCH 27.4 pg (27-33) 09/23/24 19:56 MCHC 32.1 g/dL (30-55) 09/23/24 19:56 RDW 14.6 % (12.1-15.1) 09/23/24 19:56 Plt Count 308 10^3/cmm (157-399) 09/23/24 19:56 MPV 9.6 fL (7.4-10.4) 09/23/24 19:56 Neut % (Auto) 46.5 % 09/23/24 19:56 Lymph % (Auto) 41.4 % 09/23/24 19:56 [place] % (Auto) 9.0 % 09/23/24 19:56 Eos % (Auto) 2.6 % 09/23/24 19:56 Baso % (Auto) 0.4 % 09/23/24 19:56 Neut # (Auto) 3.44 10^3/uL (1.8-7.7) 09/23/24 19:56 Lymph # (Auto) 3.1 10^3/uL (0.8-4.8) 09/23/24 19:56 [place] # (Auto) 0.7 10^3/uL (0.2-0.9) 09/23/24 19:56 Eos # (Auto) 0.2 10^3/uL (0.0-0.8) 09/23/24 19:56 Baso # (Auto) 0.0 10^3/uL (0.0-0.1) 09/23/24 19:56 Nucleated RBC % (auto) 0 % 09/23/24 19:56 Nucleated RBCs # 0.0 /100WBC 09/23/24 19:56 Ser , Semi-Qnt 456.00 mIU/mL 09/23/24 19:56 Urine Color Yellow (Yellow) 09/23/24 20:30 Urine Appearance Clear (CLEAR) 09/23/24 20:30 Urine pH 5.0 (5-7) 09/23/24 20:30 Ur Specific [place] 1.035 (1.005-1.030) H 09/23/24 20:30 Urine Protein Negative (Negative) 09/23/24 20:30 Urine Glucose (UA) Negative (Normal) 09/23/24 20:30 Urine Ketones Negative (Negative) 09/23/24 20:30 Urine Blood 3+ (Negative) A 09/23/24 20:30 Urine Nitrate Negative (Negative) 09/23/24 20:30 Urine Bilirubin Negative (Negative) 09/23/24 20:30 Urine Urobilinogen 1.0 mg/dL (Negative) 09/23/24 20:30 Ur Leukocyte Esterase Negative (Negative) 09/23/24 20:30 Urine RBC 0-2 /hpf (0-2) 09/23/24 20:30 Urine WBC 6-10 /hpf (0-5) 09/23/24 20:30 Ur Squamous Epith Cells 6-10 /hpf (0-5) 09/23/24 20:30 Amorphous Sediment Not Reportable 09/23/24 20:30 Urine Bacteria None seen /hpf (NONE) 09/23/24 20:30 Hyaline Casts 0.40 /lpf 09/23/24 20:30 All radiology interpretation(s) finalized by discharge Discharge Plan Discharge Patient Disposition: Home Clinical Impression: First trimester Abdominal pain during Qualifiers: Trimester: first trimester Qualified Code(s): O26.891 - Other specified related conditions, first trimester Condition: Stable Prescriptions: No Action Vitamin 27 mg iron- 800 mcg Tablet 1 tab PO DAILY tramadol 50 mg tablet 50 mg PO Q8H PRN (Reason: pain) Qty: 20 0RF diclofenac sodium 50 mg tablet,delayed release (DR/EC) 50 mg PO Q12H Qty: 20 0RF Discharge Orders: Discharge ED (Routine); Ordered 09/23/24 Ordered By: Charles Acevedo Referrals: Rosalino Denney MD [Primary Care Provider, Family Practice] Patient Instructions: Abdominal Pain in (ED) Activity Restrictions/Additional Instructions: Please follow-up with your regular doctor tomorrow for general reevaluation. Tylenol at home for pain, heat to your abdomen for cramping. Make sure that you are drinking plenty of water, and please return if you have any worsening vaginal bleeding, worsening pain, fevers, or other major concerns. Print Language: Bangladeshi Coding Level of Care Code ED Commutator Undercutter for Carlos Zepeda
[2024-09-23 20:57] LABS: Specific Gravity, Urine 1.035 (1.005-1.030)
[2024-09-23] MEDS: acetaminophen 500 mg Tablet 1000 MG PO (21:17)
[2024-09-23 21:19] VITALS: BP 110/71; PULSE 104; O2SAT 100
[2024-09-23 21:25] LABS: Basophils % 0.4 %; Eosinophils # 0.2 10^3/uL (0.0-0.8); Eosinophils % 2.6 %; Hematocrit 36.8 % (36-47); Lymphocytes # 3.1 10^3/uL (0.8-4.8); Lymphocytes % 41.4 %; Mean Corpuscular HGB Conc 32.1 g/dL (30-55); Mean Corpuscular Hemoglobin 27.4 pg (27-33); Mean Corpuscular Volume 85.6 fl (85-98); Mean Platelet Volume 9.6 fL (7.4-10.4); Monocytes # 0.7 10^3/uL (0.2-0.9); Neutrophils # 3.44 10^3/uL (1.8-7.7); Neutrophils % 46.5 %; Nucleated Red Blood Cells % 0 %; Platelet Count 308 10^3/cmm (157-399); Red Cell Distribution Width 14.6 % (12.1-15.1); White Blood Count 7.41 10^3/uL (3.29-11.43)
== END 2024-09-23 21:52 | disposition home or self-care (01) ==
PROVIDERS: Emergency Medicine; Emergency Provider Physician Assistant; PCP Family Medicine
DX: O26.891 Other specified pregnancy related conditions, first trimester (principal)
CPT/HCPCS: 36415; 76817; 81001; 84702; 85025; 99284; J9999

== ENCOUNTER 2025-01-17 14:58 | Emergency (ER) | payer MEDICAID, SELFPAY ==
[2025-01-17] VITALS (11 sets, daily range): BP systolic 81–95; BP diastolic 58–65; PULSE 73–94; RESP 13–26; TEMP 36.9; O2SAT 94–100
--- NOTE | 2025-01-17 15:03 | ECG_ITS ---
[facility] Test Date: 2025-01-17 Pat Name: Richa Faulkner Department: Room: Gender: Female Dispatcher Radio: : 2005 Requested By: Charles Perez Order Number: [id number] Herzog MD: Gloria Cortez M.D. Measurements Intervals [place] Rate: 79 P: 15 [place]: 129 QRS: 79 QRSD: 83 T: 63 QT: 367 QTc: 422 Interpretive Statements SINUS RHYTHM No previous ECG available for comparison Electronically Signed On 01-17-2025 18:59:47 CDT by Gloria Cortez M.D. [id number]
--- NOTE | 2025-01-17 15:37 | ED_ITS ---
HPI - Chest Pain 2 General: Chief Complaint: Chest Pain Stated Complaint: chest pain Time Seen by Provider: 01/17/25 15:09 Source: patient Mode of arrival: ambulatory Limitations: no limitations History of Present Illness: This patient is a 19-year-old, G6, P3, A2, with history of 2 prior miscarriages who presents with 2 days of central, bandlike chest tightness. The pain is intermittent, nonradiating, and not clearly associated with exertion. She reports associated shortness of breath, intermittent palpitations, and mild upper abdominal discomfort. She also notes dizziness and lightheadedness when standing. She has no vaginal bleeding or discharge. She is uncertain of her last menstrual period but has had multiple positive home tests. Her past medical history is notable for anxiety, for which she has previously presented to the ED with similar symptoms. She denies history of ectopic or significant cardiac, pulmonary, or hematologic disorders. She attempted to contact her primary care provider but was unable to secure an appointment. There is no relevant family history. The patient is anxious about her symptoms, which is exacerbating her discomfort. MD complaint: chest pain and chest discomfort Onset (ago): day(s) (2) Timing of current episode: episodic Prior episodes: No Onset: during rest Pain location: left chest and right chest Pain radiation: abdomen Severity: mild Quality: tightness Context: other (Positive home test) Associated symptoms: Reports abdominal pain, dyspnea and palpitations; Deny fever(s), nausea or vomiting Related Data Home Medications ?Medication ?Instructions ?Recorded ?Confirmed No Known Home Medications 01/17/2512/26 Allergies Allergy/AdvReac Type Severity Reaction Status Date / Time No Known Allergies Allergy Verified 09/23/24 19:33 Review of Systems 2 General: Reports: 10 or more systems reviewed and unremarkable except in HPI and below Const: Denies: fever(s), chills or fatigue Eyes: Denies: change in vision ENMT: Denies: throat pain, ear or mastoid pain or nasal discharge Card: Reports: chest pain, palpitations and lightheadedness; Denies: swelling of feet/ankles Resp: Reports: dyspnea; Denies: productive cough or wheezing GI: Reports: abdominal pain; Denies: nausea, vomiting, diarrhea or constipation : Denies: flank pain, difficulty voiding, dysuria, urinary frequency or vaginal bleeding Musc: Denies: neck pain, back pain or joint pain Skin/Breast: Denies: rash Neuro: Reports: dizziness; Denies: headache(s), numbness in extremities or weakness in extremities Psych: Reports: anxiety PFSH ED 2 PFSH: Medical History No pertinent family history Surgical History No pertinent past surgical history Social History Smoking and tobacco/nicotine status: current every day tobacco/nicotine user e- cigarettes E-Cigarette Details: vaporizer device Second hand smoke exposure: Yes Alcohol intake: never Substance/Drug Use: never Physical Exam 2 Const: COMMON NORMALS: no acute distress, patient oriented x3 and no limitations GENERAL APPEARANCE: cooperative, well developed and anxious O RIENTATION/CONSCIOUSNESS: Yes awake, Yes oriented to person, Yes oriented to place and Yes oriented to time HENMT: COMMON NORMALS: normocephalic, atraumatic and hearing grossly normal bilaterally HEAD & SCALP: normocephalic and atraumatic Eye: COMMON NORMALS: Equal, round and reactive pupils present, EOMs intact bilaterally and conjunctivae normal CONJUNCTIVA: Yes conjunctivae normal P UPIL: Yes Equal, round and reactive pupils present Neck/C-Spine: COMMON NORMALS: full ROM, supple and no JVD Resp: COMMON NORMALS: normal respiratory effort, No retractions, No use of accessory muscles and clear to auscultation bilaterally AUSCULTATION: clear to auscultation bilaterally Cardio: COMMON NORMALS: no JVD, regular rate, regular rhythm, No clicks present (Cardio), No murmurs present (Cardio) and No rub (Cardio) RATE: r egular rate RHYTHM: regular rhythm GI: COMMON NORMALS: Normal to inspection, nondistended, normoactive bowel sounds present and Soft to palpation AUSCULTATION: Yes normoactive bowel sounds PALPATION: Yes Soft to palpation RECTAL EXAM: deferred OTHER: Mild upper abdominal tenderness to palpation, voluntary guarding : COMMON NORMALS: Yes no CVA tenderness BLADDER/KIDNEY EXAM: Yes no CVA tenderness Back/Pelvis: COMMON NORMALS: no CVA tenderness, thoracic and lumbar spine normal to inspection, no thoracic nor lumbar tenderness and thoraco-lumbar ROM normal Extremity: COMMON NORMALS: normal to inspection, full ROM and capillary refill normal Neuro: COMMON NORMALS: patient oriented x3, moves all extremities, no focal motor deficits and no sensory deficits noted SENSORIUM/ORIENTATION: Yes oriented to person, Yes oriented to place and Yes oriented to time Psych: COMMON NORMALS: mental status grossly normal and Normal thought process present THOUGHT PROCESS: Normal thought process present Skin: COMMON NORMALS: no rashes or lesions noted GENERAL SKIN EXAM: no rashes or lesions noted Course 2 Vital Signs: Vital signs: Vital Signs Temperature 98.5 F 01/17/25 15:12 Pulse Rate 94 01/17/25 18:30 Respiratory Rate 15 01/17/25 18:30 Blood Pressure 90/63 01/17/25 16:17 Pulse Oximetry 100 01/17/25 18:30 Oxygen Delivery Me thod Room Air 01/17/25 15:46 MDM - Chest Pain Medical Decision Making This is a 19-year-old G6, P3, A2 female with history of anxiety and 2 prior miscarriages, presenting with 2 days of chest tightness, shortness of breath, palpitations, and mild upper abdominal discomfort in the setting of positive home tests. Differential included pulmonary embolism, acute coronary syndrome, arrhythmia, pneumonia, gastroesophageal reflux, anxiety, and complications of early such as ectopic . Initial evaluation included CBC, CMP, ECG, troponin, and D-dimer, all within normal limits. Quantitative beta-hCG was 151, 563, and OB ultrasound confirmed a single live intrauterine gestation at 8 weeks and 4 days with appropriate cardiac activity and no abnormalities. Patient remained hemodynamically stable with normal vital signs throughout ED stay. Negative D-dimer in the context of low suspicion makes PE very unlikely. Normal ECG and troponin rule out ACS. No evidence of ectopic . Given the reassuring workup, her symptoms are most consistent with physiologic changes of early compounded by anxiety. No evidence of acute cardiopulmonary pathology or obstetric emergency. Patient was counseled on results, reassured, and discharged stable condition with instructions for OB follow-up and strict return precautions. Lab Data 01/17/25 15:45 01/17/25 15:45 Radiology Impressions Ultrasound 01/17/25 16:27 IMPRESSION: 1. Single live intrauterine gestation 8 weeks 4 days +/-0 weeks 5 days by mean crown-rump length. 2. Regular cardiac rhythm 178 bpm. 3. Bilateral ovaries of normal size demonstrating normal blood flow. Laboratory Results WBC 6.62 10^3/uL (3.29-11.43) 01/17/25 15:45 RBC 3.66 10^6/uL (3.85-5.65) L 01/17/25 15:45 Hgb 10.40 g/dL (11.27-16.99) L 01/17/25 15:45 Hct 31.4 % (36-47) L 01/17/25 15:45 MCV 85.8 fl (85-98) 01/17/25 15:45 MCH 28.4 pg (27-33) 01/17/25 15:45 MCHC 33.1 g/dL (30-55) 01/17/25 15:45 RDW 13.7 % (12.1-15.1) 01/17/25 15:45 Plt Count 250 10^3/cmm (157-399) 01/17/25 15:45 MPV 9.7 fL (7.4-10.4) 01/17/25 15:45 Neut % (Auto) 59.1 % 01/17/25 15:45 Lymph % (Auto) 31.1 % 01/17/25 15:45 [place] % (Auto) 8.0 % 01/17/25 15:45 Eos % (Auto) 1.4 % 01/17/25 15:45 Baso % (Auto) 0.2 % 01/17/25 15:45 Neut # (Auto) 3.92 10^3/uL (1.8-7.7) 01/17/25 15:45 Lymph # (Auto) 2.1 10^3/uL (0.8-4.8) 01/17/25 15:45 [place] # (Auto) 0.5 10^3/uL (0.2-0.9) 01/17/25 15:45 Eos # (Auto) 0.1 10^3/uL (0.0-0.8) 01/17/25 15:45 Baso # (Auto) 0.0 10^3/uL (0.0-0.1) 01/17/25 15:45 Nucleated RBC % (auto) 0 % 01/17/25 15:45 Nucleated RBCs # 0.0 /100WBC 01/17/25 15:45 D-Dimer <= 0.27 ug/mLFEU (0-0.59) 01/17/25 15:45 Sodium 136 mmol/L (136-145) 01/17/25 15:45 Potassium 3.8 mmol/L (3.5-5.1) 01/17/25 15:45 Chloride 102 mmol/L (98-107) 01/17/25 15:45 Carbon Dioxide 20 mmol/L (22-29) L 01/17/25 15:45 Anion Gap 17.8 (5-19) 01/17/25 15:45 BUN 7 mg/dL (6-20) 01/17/25 15:45 Creatinine 0.4 mg/dL (0.5-0.9) L 01/17/25 15:45 GFR Calculation 201.5 mL/min (90-130) H 01/17/25 15:45 Glucose 75 mg/dL (65-115) 01/17/25 15:45 Calculated Osmolality 279 mOsm/kg (285-295) L 01/17/25 15:45 Calcium 9.1 mg/dL (8.5-10.5) 01/17/25 15:45 Total Bilirubin 0.5 mg/dL (0.15-1.2) 01/17/25 15:45 AST 14 U/L (0-32) 01/17/25 15:45 ALT 11 U/L (0-33) 01/17/25 15:45 Alkaline Phosphatase 45 U/L (35-105) 01/17/25 15:45 Troponin T Baseline < 6 ng/L (0-10) 01/17/25 15:45 Troponin T 120 Minute < 6.0 ng/L (0-10) 01/17/25 17:56 Delta Troponin T 0 ABS# (0-10) 01/17/25 17:56 Total Protein 6.5 g/dL (6.6-8.7) L 01/17/25 15:45 Albumin 4.5 g/dL (3.5-5.2) 01/17/25 15:45 Globulin 2.0 g/dL (1.3-4.6) 01/17/25 15:45 Ser , Semi-Qnt 554783.00 mIU/mL 01/17/25 15:45 All radiology interpretation(s) finalized by discharge Discharge Plan Discharge Patient Disposition: Home Clinical Impression: 8 weeks gestation of , Confirmed intrauterine on ultrasound, Chest pain during Condition: Stable Prescriptions: No Action No Known Home Medications Discharge Orders: Discharge ED (Routine); Ordered 01/17/25 Ordered By: Charles Acevedo Referrals: Rosalino Denney MD [Primary Care Provider, [facility]] Patient Instructions: Patient Portal & Hiar Instructions Activity Restrictions/Additional Instructions: Chest Pain Discharge Discharge Instructions: Chest Pain in Early Summary of Visit: A 19-year-old woman (8 weeks, 5 days by ultrasound) presented with chest pain. Evaluation included a normal ECG, negative troponin, negative D- dimer, and unremarkable CBC and metabolic panel. No evidence of acute coronary syndrome, pulmonary embolism, or other life-threatening etiology was found. She is hemodynamically stable and has an intrauterine . Follow-Up: - Schedule follow-up with obstetrics as previously arranged. - Continue routine care. Return Precautions: Return to the emergency department or seek immediate medical attention if any of the following occur: - New, severe, or persistent chest pain (especially if associated with exertion, radiates to the arm, neck, jaw, or back, or is described as pressure, tightness, or heaviness). - Shortness of breath at rest or with minimal activity, new or worsening palpitations, fainting, or near-fainting. - Coughing up blood, severe or worsening leg swelling, or sudden onset of severe headache or vision changes. - Severe abdominal pain, vaginal bleeding, or loss of consciousness. - Any other symptoms that are concerning or do not improve. Benign Causes of Chest Pain in : With life-threatening causes excluded, chest pain in is most often due to benign etiologies, including: - Musculoskeletal pain (e.g., costochondritis, chest wall strain): Common due to hormonal changes and increased body weight; pain is often reproducible with palpation or movement. - Gastroesophageal reflux disease (GERD): increases risk due to hormonal relaxation of the lower esophageal sphincter; pain is often burning and may worsen after eating or when lying down. - Anxiety or panic attacks: May present with chest discomfort, palpitations, and shortness of breath; symptoms are often fleeting and not associated with exertion. - Breast tenderness or changes: Hormonal changes can cause breast pain that may be perceived as chest discomfort. - Benign palpitations: Increased blood volume and cardiac output in can cause awareness of heartbeat or mild palpitations without underlying pathology. General Advice: - Rest as needed and avoid activities that worsen symptoms. - Use acetaminophen for musculoskeletal pain if needed (avoid NSAIDs in unless specifically directed). - For reflux symptoms, consider small, frequent meals, avoid lying down after eating, and elevate the head of the bed. Antacids (not containing salicylates) may be used if needed. - Practice stress reduction techniques if anxiety is a factor. Medication Safety: - Do not start any new medications, including [id number] drugs or supplements, without consulting obstetrics or your primary care provider. Obstetric Care: - Continue vitamins and routine care. - Notify obstetrics of any new or concerning symptoms. Summary: The evaluation did not reveal any dangerous cause for chest pain. Most chest pain in is benign, but vigilance for new or worsening symptoms is essential. Follow up as scheduled and return for any concerning changes. Print Language: Kosovan Coding Level of Care Code ED Dental Service Chief for Carlos Zepeda
--- NOTE | 2025-01-17 15:43 | ECG_ITS ---
[facility] Date: 2025-01-17 Pat Name: Richa Faulkner Department: Room: Gender: Female Cap Blocker: : 2005 Requested By: Charles Perez Order Number: [id number] Herzog MD: Gloria Cortez M.D. Measurements Intervals [place] Rate: 72 P: 5 [place]: 126 QRS: 79 QRSD: 83 T: 64 QT: 382 QTc: 419 Interpretive Statements SINUS RHYTHM WITH OCCASIONAL VENTRICULAR PREMATURE COMPLEXES Compared to ECG 01/17/2025 15:10:48 Ventricular premature complex(es) now present Electronically Signed On 01-17-2025 18:43:56 CDT by Gloria Cortez M.D. [email or web address]
[2025-01-17 15:50] LABS: Hematocrit 31.4 % (36-47); Hemoglobin 10.40 g/dL (11.27-16.99); Mean Corpuscular HGB Conc 33.1 g/dL (30-55); Mean Corpuscular Hemoglobin 28.4 pg (27-33); Mean Corpuscular Volume 85.8 fl (85-98); Nucleated Red Blood Cells % 0 %; Platelet Count 250 10^3/cmm (157-399); Red Blood Count 3.66 10^6/uL (3.85-5.65); White Blood Count 6.62 10^3/uL (3.29-11.43)
[2025-01-17 16:09] LABS: Troponin(5th) Baseline < 6 ng/L (0-10)
[2025-01-17 16:24] LABS: Alanine Aminotransferase 11 U/L (0-33); Albumin Level 4.5 g/dL (3.5-5.2); Alkaline Phosphatase 45 U/L (35-105); Anion Gap 17.8 (5-19); Aspartate Amino Transferase 14 U/L (0-32); Blood Urea Nitrogen 7 mg/dL (6-20); Calcium 9.1 mg/dL (8.5-10.5); Carbon Dioxide 20 mmol/L (22-29); Chloride 102 mmol/L (98-107); Creatinine Clr Calc Pharmacy 187.9142; Globulin 2.0 g/dL (1.3-4.6); Glucose 75 mg/dL (65-115); Osmolality Calculated 279 mOsm/kg (285-295); Potassium 3.8 mmol/L (3.5-5.1); Sodium 136 mmol/L (136-145); Total Protein 6.5 g/dL (6.6-8.7)
--- NOTE | 2025-01-17 16:27 | USR_ITS ---
PROCEDURE INFORMATION: Exam: US First Trimester, Transabdominal Exam date and time: 01/17/2025 5:32 PM Age: 19 years old Clinical indication: complicated by abdominal or pelvic pain; Other: Cramping; Gestational age or lmp: 8w4d by US. Patient was not sure of her lmp; ; Additional info: Abdominal pain, LABS AND CLINICAL REPORTS: Last menstrual period start date: Unknown; 10/25/2024 Gestational age (Established): 12 w 0 d Estimated due date (Established): 08/01/2025 TECHNIQUE: Imaging protocol: Real-time transabdominal obstetrical ultrasound of the maternal pelvis and a first trimester , less than 14 weeks 0 days, with image documentation. Total images: 486 COMPARISON: 1. US OB transvaginal [id number] 09/23/2024 8:37 PM 2. US OB limited [id number] 10/10/2023 9:55 AM FINDINGS: GESTATION: Gestation: Yolk sac measures 4.1 mm. Single pole of 8 weeks 4 days by mean crown-rump length 2.0 cm. Embryo/ cardiac activity (BPM): 178 bpm. Extra-embryonic membranes/Placenta: No subchorionic hemorrhage. Amniotic/Chorionic fluid: Amniotic and extra-amniotic fluid are normal for gestational age. BIOMETRY: Gestational age (AUA): 8 weeks 4 days +/-0 weeks 5 days MATERNAL: Uterus: Uterus is anteverted. Cervix: Cervical length measures 4 cm. Cervix closed, 4.0 cm long. Right ovary/adnexa: Right ovary measures 4.5 cm volume with maximum longitudinal dimension 3.2 cm. Right ovary normal size, satisfactory position, and normal arterial/venous blood flow at color flow/pulse-wave Doppler. Left ovary/adnexa: Left ovary measures 4.1 cm volume with maximum longitudinal dimension 2.6 cm. Left ovary normal size, satisfactory position, and normal arterial/venous blood flow at color flow/pulse-wave Doppler. Intraperitoneal space: Trace posterior cul-de-sac anechoic free fluid. Urinary bladder: Trace debris within the urinary bladder. US/US OB <= 14 weeks fetus [id number] IMPRESSION: 1. Single live intrauterine gestation 8 weeks 4 days +/-0 weeks 5 days by mean crown-rump length. 2. Regular cardiac rhythm 178 bpm. 3. Bilateral ovaries of normal size demonstrating normal blood flow.
--- NOTE | 2025-01-17 17:59 | ECG_ITS ---
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 Measurements Intervals [place] Rate: 77 P: 12 PA: 127 QRS: 79 QRSD: 82 T: 58 QT: 377 QTc: 429 Interpretive Statements SINUS RHYTHM Compared to ECG 01/17/2025 15:43:01 Ventricular premature complex(es) no longer present Electronically Signed On 01-17-2025 18:58:27 CDT by Gloria Cortez M.D. [email or web address]
[2025-01-17 18:24] LABS: Troponin 5 2HR < 6.0 ng/L (0-10); Troponin 5 2HR Delta 0 ABS# (0-10)
== END 2025-01-17 19:08 | disposition home or self-care (01) ==
PROVIDERS: Emergency Provider Physician Assistant; PCP Family Medicine
DX: O26.891 Other specified pregnancy related conditions, first trimester (principal); Z3A.08 8 weeks gestation of pregnancy; R07.9 Chest pain, unspecified; F17.290 Nicotine dependence, other tobacco product, uncomplicated
CPT/HCPCS: 36415; 76801; 80053; 84484; 84702; 85025; 85378; 93005; 99285

== ENCOUNTER 2025-05-07 09:35 | Outpatient (CLI) | payer MEDICAID, SELFPAY ==
[2025-05-07 09:45] VITALS: BMI 22.3
[2025-05-07 09:53] VITALS: BP 109/54; PULSE 90
[2025-05-07 10:04] LABS: Glucose Urine UA Negative (Normal); Nitrate Urine Negative (Negative); Specific Gravity, Urine 1.021 (1.005-1.030)
[2025-05-07 10:08] VITALS: BP 97/52; PULSE 104
[2025-05-07 10:23] VITALS: BP 95/53; PULSE 100
[2025-05-07 10:42] VITALS: BP 95/53; PULSE 100; RESP 15; TEMP 36.4; O2SAT 100
== END 2025-05-07 10:42 | disposition home or self-care (01) ==
LOC: OPOB 09:42 → OBGYN 09:44
PROVIDERS: PCP Family Medicine; Visit Provider Family Medicine
DX: O46.90 Antepartum hemorrhage, unspecified, unspecified trimester (principal); Z3A.00 Weeks of gestation of pregnancy not specified; R25.2 Cramp and spasm
CPT/HCPCS: 81001; 99211